=== PATIENT | female | born 1930 | race Caucasian/White ===

== ENCOUNTER 2017-04-02 08:15 | Emergency (ER) | payer MEDICARE, OTHER ==
--- NOTE | 2017-04-02 08:25 | ER Document Report ---
ED General Pain - General Chief Complaint: Hip Pain Stated Complaint: LEFT HIP PAIN Time Seen by Provider: 04/02/17 08:21 Mode of Arrival: Medic Information source: Patient Notes: Patient is an 86-year-old female with no history of osteoporosis or bone disease who presents to the ER today for left hip pain after she "twisted wrong " in the bed this morning. She states that it is in the left hip radiating down into her groin and down the left leg in the front of the leg. She denies any recent injury, numbness, tingling she has never broken his hip. - Related Data Allergies/Adverse Reactions: No Known Allergies Allergy (Unverified 04/02/17 08:32) Past Medical History - General Information source: Patient - Social History Smoking Status: Unknown if Ever Smoked Family History: Reviewed & Not Pertinent Review of Systems - Review of Systems Constitutional: No symptoms reported EENT: No symptoms reported Cardiovascular: No symptoms reported Respiratory: No symptoms reported Gastrointestinal: No symptoms reported Genitourinary: No symptoms reported Female Genitourinary: No symptoms reported Musculoskeletal: See HPI Skin: No symptoms reported Hematologic/Lymphatic: No symptoms reported Neurological/Psychological: No symptoms reported Physical Exam - Vital signs Vitals: Temp Pulse Resp BP Pulse Ox 97.9 F 87 16 145/59 H 97 04/02/17 08:27 04/02/17 08:27 04/02/17 08:27 04/02/17 08:27 04/02/17 08:27 - Notes Notes: PHYSICAL EXAMINATION: GENERAL: Elderly, in no acute distress. HEAD: Atraumatic, normocephalic. EYES: Pupils equal round and reactive to light, extraocular movements intact, sclera anicteric, conjunctiva are normal. ENT: ear canals without erythema or foreign body, TMs pearly means with good bony landmarks, nares patent, oropharynx clear without exudates. Moist mucous membranes. NECK: Normal range of motion, supple without lymphadenopathy LUNGS: CTAB and equal. No wheezes rales or rhonchi. HEART: Regular rate and rhythm without murmurs ABDOMEN: Soft, no tenderness. No guarding, no rebound BACK: no vertebral tenderness, normal ROM GI/: no CVA tenderness EXTREMITIES: limited range of motion of the left hip due to pain but nontender to left hip and left leg, no pitting edema. No cyanosis. good and equal pulses distally NEUROLOGICAL: Cranial nerves grossly intact. Normal sensory/motor exams. PSYCH: Normal mood, normal affect. SKIN: Warm, Dry, normal turgor, no rashes or lesions noted Course - Re-evaluation Re-evalutation: 04/02/17 09:51 x rays report osteoporosis but no acute fracture or abnormality. Questionable multiple myeloma as Bones are very brittle, even for patient's age. Patient to follow-up with primary care provider for bone scan. - Vital Signs Vital signs: Temp Pulse Resp BP Pulse Ox 97.9 F 87 16 145/59 H 97 04/02/17 08:27 04/02/17 08:27 04/02/17 08:27 04/02/17 08:27 04/02/17 08:27 Discharge - Discharge Clinical Impression: Osteoporosis, Left hip pain Condition: Stable Disposition: HOME, SELF-CARE Instructions: Osteoporosis ([facility]) Additional Instructions: You need a bone scan. Return immediately for any new or worsening symptoms. Follow up with primary care provider, call tomorrow to make followup appointment. Prescriptions: Naproxen [Naprosyn 375 Mg Tablet] 375 mg PO Q6 PRN #30 tablet PRN Reason: Referrals: PRANAY CHANDLER MD [Primary Care Provider] - Follow up as needed
[2017-04-02 08:38] VITALS: BP 145/59
--- NOTE | 2017-04-02 09:09 | RADIOLOGY REPORT (SQ) ---
EXAM DESCRIPTION: HIP LEFT AP/LATERAL COMPLETED DATE/TIME: 04/02/2017 8:48 am REASON FOR STUDY: pain COMPARISON: None. NUMBER OF VIEWS: Two views. TECHNIQUE: AP pelvis and additional frog-leg view of the left hip. LIMITATIONS: None. FINDINGS: MINERALIZATION: Diffusely osteopenic. There is a permeative pattern throughout the visual ized bony pelvis and right and left proximal femur. Question myeloma or other lytic process. LEFT HIP: No fracture or dislocation. Advanced left hip osteoarthritis with a [id number] appearanc e, and bony spurring along the acetabulum and left femoral head. RIGHT HIP: No fracture or dislocation. Old healed right proximal 3rd femoral diaphysis fracture. Mo derate to high-grade right hip joint space narrowing with mild bony spurring. . PUBIS AND ISCHIUM: No fracture. PELVIS: No fracture. SACRUM: No fracture or dislocation. No worrisome bone lesions. LOWER LUMBAR SPINE: Advanced disc space loss of height at L3-4 and L4-5. SOFT TISSUES: No findings. OTHER: No other significant finding. IMPRESSION: No acute fracture. Osteoarthritis both hips Old healed right proximal femoral diaphysis fracture Osteoporosis with permeative lytic pattern, question underlying myeloma Report called to Dr. Kline TECHNICAL DOCUMENTATION: JOB ID: [id number] [employer]- All Rights Reserved
--- NOTE | 2017-04-02 09:11 | RADIOLOGY REPORT (SQ) ---
EXAM DESCRIPTION: FEMUR LEFT COMPLETED DATE/TIME: 04/02/2017 8:48 am REASON FOR STUDY: pain COMPARISON: Left hip films same date NUMBER OF VIEWS: Two views. TECHNIQUE: Two radiographic images acquired of the left femur to include hip and knee in at least on e projection. LIMITATIONS: None. FINDINGS: MINERALIZATION: Osteoporotic. Question permeative lytic pattern in the proximal left femo ral diaphysis. BONES: No acute fracture. No worrisome bone lesions. SOFT TISSUES: No obvious swelling or foreign body. OTHER: Advanced joint space narrowing with egki-nb-hwsk appearance, subcortical cyst formation and emanuel ny spurring at the left hip joint. IMPRESSION: Osteoporotic. No acute fracture. Question permeative lytic pattern from myeloma TECHNICAL DOCUMENTATION: JOB ID: [id number] [employer]- All Rights Reserved
[2017-04-02] MEDS ORDERED: NAPROXEN 375 MG TABLET PO ONE (09:38)
== END 2017-04-02 10:00 | disposition home or self-care (01) ==
LOC: ER 08:15
DX: M25.552 Pain in left hip (principal); M81.0 Age-related osteoporosis without current pathological fracture
CPT/HCPCS: 99283

== ENCOUNTER → 2017-09-02 | Outpatient (CLI) | payer MEDICARE ==
--- NOTE | 2017-09-02 11:44 | RADIOLOGY REPORT (SQ) ---
EXAM DESCRIPTION: VENOUS BILATERAL LOWER COMPLETED DATE/TIME: 09/02/2017 11:32 am REASON FOR STUDY: LEG PAIN M79.604 PAIN IN RIGHT LEG M79.89 OTHER SPECIFIED SOFT TISSUE DISORDERS Z86.718 PERSONAL HISTORY OF OTHER VENOUS THROMBOSIS AND EMBO COMPARISON: None. TECHNIQUE: Dynamic and static acevedo scale and color images acquired of both lower extremity venous sy stems. Selected spectral images acquired with additional compression and augmentation maneuvers. Imag es stored on PACS. LIMITATIONS: Limited visualization in the left leg. FINDINGS: RIGHT LEG COMMON FEMORAL AND FEMORAL: Thrombosis mid to distal femoral vein. POPLITEAL: Normal compression and augmentation. No visualized echogenic material on acevedo scale. No de fects on color images. CALF VESSELS: Normal compression and augmentation. No visualized echogenic material on acevedo scale. No defects on color image. GSV AND SSV: Normal compression. No visualized echogenic material on acevedo scale. No defects on color images. ANY DEEP VENOUS INSUFFICIENCY: Not evaluated. ANY EVIDENCE OF POPLITEAL CYST: No. OTHER: No other significant finding. LEFT LEG COMMON FEMORAL AND FEMORAL: Distal femoral vein poorly visualized. Normal phasicity, compression and augmentation. No visualized echogenic material on acevedo scale. No defects on color images. POPLITEAL: Retrograde flow. No visualized echogenic material on acevedo scale. No defects on color image s. CALF VESSELS: Normal compression and augmentation. No visualized echogenic material on acevedo scale. No defects on color images. GSV AND SSV: Not visualized. ANY DEEP VENOUS INSUFFICIENCY: Not evaluated. ANY EVIDENCE POPLITEAL CYST: No. OTHER: No other significant finding. IMPRESSION: DEEP VENOUS THROMBOSIS INVOLVING THE MID TO DISTAL RIGHT FEMORAL VEIN. COMMENT: Preliminary report was called by the technologist to the referring clinician's office at th e time of patient visit. TECHNICAL DOCUMENTATION: JOB ID: [id number] [email or web address]- All Rights Reserved
--- NOTE | 2017-09-04 13:09 | XCELERA REPORT ---
[address] [address] Lower Extremity Arterial Evaluation Name: DAVID FOWLER Age: 87 yrs Gender: Female : 1930 Patient Status: Outpatient Patient Location: Study Date: 09/02/2017 10:20 AM Procedure: A color flow and duplex scan of the lower extremity arteries was performed bilaterally with velocity and waveform anaylsis. Ankle brachial indicies performed. 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 Then biphasic to the infregeniculate vessels. 0 % stenosis . Ankle Brachial index is 1.2. Left Side Arterial Evaluation Normal velocity and triphasic waveforms noted from the Common Femoral artery to the Anterior Tibial artery. Monophasic in the Posterior Tibial artery. 50-99 % stenosis at the Posterior Tibial artery. Ankle Brachial index is 1.2. Interpretation Summary Mild hemodynamically significant lesions in the right lower extremity only, on duplex imaging, at rest. Mild hemodynamically significant lesions in the left lower extremity only, on duplex imaging, at rest. : LIU KHAN > Liu Khan
== END ==
LOC: SP 09:23
PROVIDERS: ATTEND Surgery
DX: M79.604 Pain in right leg (principal); M79.89 Other specified soft tissue disorders; Z86.718 Personal history of other venous thrombosis and embolism
CPT/HCPCS: 93925; 93970

== ENCOUNTER 2018-03-18 02:47 | Inpatient (IN) | payer MEDICARE ==
[2018-03-18] MEDS ORDERED: MORPHINE SULFATE 10 MG/ML INJ IV ONE ×4 (03:05→06:11)
--- NOTE | 2018-03-18 03:07 | ER Document Report ---
ED Fall - General Chief Complaint: Hip Injury Stated Complaint: FALL Time Seen by Provider: 03/18/18 02:59 Notes: Patient is an 87-year-old female who comes emergency department for chief complaint of fall, she states she accidentally fell out of her bed, she landed on her left hip area, she hit her head, she had a small amount of bleeding from her left ear, she denies loss of consciousness, vomiting, chest pain, abdominal pain, incontinence, numbness. She is not on a blood thinner. She lives at home with her daughter. Past medical history of CHF, DVT, hypertension. She is up-to-date on her tetanus within 5 years. TRAVEL OUTSIDE OF THE [place] IN LAST 30 DAYS: No - Related data Allergies/Adverse Reactions: No Known Allergies Allergy (Unverified 04/02/17 08:32) Past Medical History - General Information source: Patient, Relative - Social History Smoking Status: Never Smoker Frequency of alcohol use: None Drug Abuse: None Family History: Reviewed & Not Pertinent - Past Medical History Cardiac Medical History: Reports: Hx Congestive Heart Failure, Hx DVT, Hx Hypertension - Immunizations Hx Diphtheria, Pertussis, Tetanus Vaccination: Yes Review of Systems - Review of Systems Constitutional: No symptoms reported EENT: No symptoms reported Cardiovascular: No symptoms reported Respiratory: No symptoms reported Gastrointestinal: No symptoms reported Genitourinary: No symptoms reported Female Genitourinary: No symptoms reported Musculoskeletal: See HPI Skin: No symptoms reported Hematologic/Lymphatic: No symptoms reported Neurological/Psychological: See HPI Physical Exam - Vital signs Vitals: Temp Pulse Resp BP Pulse Ox 97.9 F 75 20 147/60 H 97 03/18/18 02:54 03/18/18 02:54 03/18/18 02:54 03/18/18 02:54 03/18/18 02:54 - Notes Notes: GENERAL: Alert, interacts well. Patient in obvious pain, shifting, unwilling to place weight on left leg HEAD: Normocephalic, atraumatic. EYES: Pupils equal, round, and reactive to light. Extraocular movements intact. ENT: Oral mucosa moist, tongue midline. [Nares patent, no nasal septal hematoma , TM's intact.] NECK: Full range of motion. Supple. Trachea midline. LUNGS: Clear to auscultation bilaterally, no wheezes, rales, or rhonchi. No respiratory distress. HEART: Regular rate and rhythm. No murmur ABDOMEN: Soft, non-tender. Non-distended. Bowel sounds present in all 4 quadrants. EXTREMITIES: Some difficulty moving right extremity, reportedly chronic. Left extremity with some shortening, marked pain in the general hip and femur area. Normal distal pulse and sensation. Normal exam otherwise. BACK: no cervical, thoracic, lumbar midline tenderness. No saddle anesthesia, normal distal neurovascular exam. NEUROLOGICAL: Alert and oriented x3. Normal speech. [cranial nerves II through XII grossly intact]. SKIN: Warm, dry, normal turgor. No rashes or lesions noted. Small abrasion noted over the top of the left ear at the helix. Course - Re-evaluation Re-evalutation: Patient unable to walk, in obvious pain, I help to the staff transfer her to the bed. She was medicated. Became more comfortable for a little while, then had pain again, had to be remedicated. Left comminuted proximal fracture of the femur on x-ray, chest x-ray performed, CT of the head and neck performed with no acute abnormality except for questionable area in the mediastinum which could be a mass, recommends follow- up with chest CT or ultrasound. CBC shows mild leukocytosis, normal platelets. Chemistry shows elevated BUN, elevated blood glucose, no acidosis. Attempted to Place [place] although patient became extremely agitated with this, this was very difficult and after a short time patient refused. She has a chronic right leg deformity which makes this more difficult. She does ambulate at home with a walker. She lives at home with her daughter. 03/18/18 05:[address] Godwin, he will consult on the patient for the left hip/femur fracture. 03/18/18 05:[address] Herr, internal medicine, patient will be admitted to telemetry full admission. Patient and daughter state understanding and agreement. - Vital Signs Vital signs: Temp Pulse Resp BP Pulse Ox 97.9 F 75 17 143/55 H 100 03/18/18 02:54 03/18/18 02:54 03/18/18 04:02 03/18/18 04:02 03/18/18 04:02 - Laboratory Result Diagrams: 03/18/18 04:44 03/18/18 04:44 Laboratory results interpreted by me: 03/18/18 03/18/1803/18/18 04:44 04:44 04:44 WBC 12.7 H RBC 3.67 L Hgb 10.3 L Hct 30.6 L Seg Neutrophils % 88.8 H Lymphocytes % 6.0 L Absolute Neutrophils 11.3 H Chloride 97 L BUN 48 H Est GFR ( Amer) 54 L Est GFR (Non-Af Amer) 44 L Glucose 214 H Hemoglobin A1c % 6.9 H Direct Bilirubin 0.5 H Discharge - Discharge Clinical Impression: Fall Qualifiers: Encounter type: initial encounter Qualified Code(s): W19.XXXA - Unspecified fall, initial encounter Fracture of proximal end of left femur Qualifiers: Encounter type: initial encounter Fracture type: closed Qualified Code(s): S72.002A - Fracture of unspecified part of neck of left femur, initial encounter for closed fracture Condition: Stable Disposition: ADMITTED INPATIENT Admitting Provider: Hospitalist Unit Admitted: Telemetry
[2018-03-18] MEDS ORDERED: ONDANSETRON 4 MG TAB.RAPDIS PO ONE (03:54)
--- NOTE | 2018-03-18 04:06 | RADIOLOGY REPORT (SQ) ---
EXAM DESCRIPTION: CT HEAD WITHOUT IV CONTRAST COMPLETED DATE/TME: 03/18/2018 03:05 CLINICAL HISTORY: 87 years Female, fall, head injury COMPARISON: None. TECHNIQUE: No contrast. Coronal and sagittal reformat. This exam was performed according to our departmental dose-optimization program, which includes automated exposure control, adjustment of the mA and/or kV according to patient size and/or use of iterative reconstruction technique. FINDINGS: No hemorrhage or infarct. No mass, mass effect, or midline shift. Mild cerebral volume loss, mild white matter microangiopathy pattern, 2 cm right maxillary retention cyst-mucocele. Brain and extra-axial structures appear otherwise intact. IMPRESSION: No acute findings.
--- NOTE | 2018-03-18 04:15 | RADIOLOGY REPORT (SQ) ---
EXAM DESCRIPTION: CT CERVICAL SPINE WITHOUT IV CONTRAST COMPLETED DATE/TME: 03/18/2018 03:05 CLINICAL HISTORY: 87 years Female, fall, head injury Comparison: None. Technique: No contrast. Coronal and sagital reformat. This exam was performed according to our departmental dose-optimization program, which includes automated exposure control, adjustment of the mA and/or kV according to patient size and/or use of iterative reconstruction technique. [facility]: Dose Right [facility]: CareDose [facility]: Dose Right [facility]: Teradose 4D [facility]: Ter[employer] Tech LIMITATIONS: None. Findings: Fracture: None. Vertebral alignment: Normal, including the craniocervical junction and cervicothoracic junction. Mild reticulonodular interstitial markings at the upper lung tran. Moderate straightening of the cervical spine. Moderate disc desiccation at the C5-C7 levels. Deformity of the dens consistent with prior injury. Moderate spondylosis. Partial fusion of posterior elements involve the C2-C5 levels. Moderate C5-C6 disc bulge-osteophyte complex causes mild-moderate spinal canal stenosis. Soft tissues: 3.6 cm macrolobulated mass with calcification of the upper mediastinum possibly associated with the thyroid. Impression: 1. Indeterminate 3.6 cm mass with calcification of the upper mediastinum possibly associated with the thyroid. Recommend thyroid ultrasound contrast CT of the chest. 2. Mild interstitial markings. Differential diagnosis includes pulmonary edema, atypical pneumonitis, and chronic interstitial lung disease. 3. No acute defect of the cervical spine.
--- NOTE | 2018-03-18 04:16 | RADIOLOGY REPORT (SQ) ---
EXAM DESCRIPTION: XR CHEST 1 VIEW COMPLETED DATE/TME: 03/18/2018 00:00 CLINICAL HISTORY: 87 years Female, FALL COMPARISON: None. NUMBER OF VIEWS/TECHNIQUE: 1/AP FINDINGS: Adequate lung volume, mild interstitial markings, normal cardiac silhouette, right upper abdominal clips and intact bony thorax. IMPRESSION: Mild interstitial markings. Differential diagnosis includes pulmonary edema, atypical pneumonitis, and chronic interstitial lung disease. Please also see abnormal concurrent CT of the cervical spine.
--- NOTE | 2018-03-18 04:19 | RADIOLOGY REPORT (SQ) ---
EXAM DESCRIPTION: XR HIP 2 OR MORE VIEWS COMPLETED DATE/TME: 03/18/2018 03:05 CLINICAL HISTORY: 87 years, Female, fall, pain COMPARISON: None. NUMBER OF VIEWS: 3 LIMITATIONS: None. FINDINGS: Comminuted intratrochanteric fracture of the left femur with impaction and 1.2 cm medial displacement of the lesser trochanter. Moderate osteoarthritis of bilateral hips. Moderate lower lobar disc desiccation. Moderate deformity of the proximal right femoral shaft consistent with prior injury. Diffuse demineralization. IMPRESSION: Fracture of the proximal left femur.
[2018-03-18 04:56] LABS: ABSOLUTE EOSINOPHILS # (AUTO) 0.1 10^3/uL (0.0-0.6); ABSOLUTE LYMPHOCYTES (AUTO) 0.8 10^3/uL (0.5-4.7); ABSOLUTE MONOCYTES (AUTO) 0.5 10^3/uL (0.1-1.4); ABSOLUTE NEUT (AUTO) 11.3 10^3/uL (1.7-8.2); BASOPHILS % (AUTO) 0.2 % (0-2); EOSINOPHILS % (AUTO) 0.7 % (0-6); HEMATOCRIT 30.6 % (36.0-47.0); HEMOGLOBIN 10.3 g/dL (12.0-15.5); MEAN CORPUSCULAR HGB CONC 33.7 g/dL (32.0-36.0); MEAN CORPUSCULAR VOLUME 83 fl (80-97); MONOCYTES % (AUTO) 4.3 % (3-13); PLATELET COUNT 338 10^3/uL (150-450); RED BLOOD COUNT 3.67 10^6/uL (3.72-5.28); RED CELL DISTRIBUTION WIDTH 13.9 % (11.5-14.0); SEGMENTED NEUTROPHILS % (AUTO) 88.8 % (42-78); TOTAL CELLS COUNTED % (AUTO) 100 %; WHITE BLOOD COUNT 12.7 10^3/uL (4.0-10.5)
[2018-03-18 05:07] LABS: INTERNATIONAL RATION (INR) 1.11; PARTIAL THROMBOPLASTIN TIME 29.6 SEC (23.5-35.8); PROTHROMBIN TIME 14.9 SEC (11.4-15.4)
[2018-03-18 05:12] LABS: ALANINE AMINOTRANSFERASE 27 U/L (9-52); ALBUMIN 3.6 g/dL (3.5-5.0); ALKALINE PHOSPHATASE 113 U/L (38-126); ANION GAP 14 (5-19); ASPARTATE AMINO TRANSFERASE 29 U/L (14-36); BILIRUBIN,DIRECT 0.5 mg/dL (0.0-0.4); BLOOD UREA NITROGEN 48 mg/dL (7-20); CALCIUM 9.4 mg/dL (8.4-10.2); CARBON DIOXIDE 26 mmol/L (22-30); CHLORIDE 97 mmol/L (98-107); GLUCOSE 214 mg/dL (75-110); POTASSIUM 4.1 mmol/L (3.6-5.0); SODIUM 137.4 mmol/L (137-145); TOTAL PROTEIN 6.8 g/dL (6.3-8.2)
[2018-03-18] MEDS ORDERED: DEXTROSE 40% GEL 15 GM TUBE PO PRN ×2 (05:25)
[2018-03-18] MEDS ORDERED: ACETAMINOPHEN 325 MG TABLET PO PRN ×2 (05:25→06:23)
[2018-03-18] MEDS ORDERED: DEXTROSE 50%-WATER 25 GM/50 ML DISP.SYRIN IV PRN ×2 (05:25)
[2018-03-18] MEDS ORDERED: GLUCAGON,HUMAN RECOMB 1 MG INJ IM PRN (05:25)
[2018-03-18] MEDS ORDERED: IPRATROPIUM/ALBUTEROL 0.5-2.5 MG/3 ML AMPUL NEB PRN (05:25)
[2018-03-18] MEDS ORDERED: MAGNESIUM HYDROXIDE SUSP 30 ML UDCUP PO PRN (05:25)
[2018-03-18] MEDS ORDERED: FENTANYL CITRATE INJ/PF 100 MCG/2 ML AMPUL IV ONE ×2 (05:29)
[2018-03-18] MEDS ORDERED: NORMAL SALINE 1000 ML 1,000 ML IV PRN (05:30)
[2018-03-18 05:52] LABS: CREATINE KINASE MB 0.97 ng/mL (<4.55)
[2018-03-18 05:56] LABS: TROPONIN I < 0.012 ng/mL
[2018-03-18] MEDS ORDERED: MORPHINE SULFATE 10 MG/ML INJ ONE (06:09)
[2018-03-18] MEDS ORDERED: KETOROLAC TROMETHAMINE INJ/PF 30 MG/1 ML SDV IV ONE (06:22)
--- NOTE | 2018-03-18 06:33 | PDOC CONSULTATION ---
Consultation Consult Date: 03/18/18 Consult reason:: Left hip pain History of Present Illness Admission Date/PCP: 03/18/18 05:40 PRANAY CHANDLER MD History of Present Illness: DAVID FOWLER is a 87 year old female Patient is an 87-year-old white female, household ambulator, who fell out of bed and sustained a left hip injury. She was unable to weight-bear. She is brought to the emergency room her left intratrochanteric femur fracture was identified. Orthopedics is consulted for fracture management. Past Medical History Cardiac Medical History: Reports: Congestive Heart Failure, DVT, Hypertension Social History Information Source: Patient, Relative, Dr. Office Smoking Status: Never Smoker Family History Family History: Reviewed & Not Pertinent Parental Family History Reviewed: No Children Family History Reviewed: No Sibling(s) Family History Reviewed.: No Medication/Allergy Home Medications: Naproxen [Naprosyn 375 Mg Tablet] 375 mg PO Q6 PRN #30 tablet 04/02/17 Allergies/Adverse Reactions: No Known Allergies Allergy (Unverified 04/02/17 08:32) Review of Systems ROS unobtainable: Due to mental status All systems: as per H Physical Exam Vital Signs: Temp Pulse Resp BP Pulse Ox 36.6 C 75 18 147/86 H 99 03/18/18 02:54 03/18/18 02:54 03/18/18 06:01 03/18/18 06:01 03/18/18 06:01 Physical Exam: Patient is an elderly white female lying on [facility]. There is some shortness of breath and a fair amount of anxiety. She is accompanied by family member. Most of the history comes from family member. General appearance: PRESENT: mild distress Head exam: PRESENT: normocephalic Cardiovascular exam: PRESENT: RRR Vascular exam: PRESENT: normal capillary refill GI/Abdominal exam: PRESENT: soft Rectal exam: PRESENT: deferred Extremities exam: PRESENT: other - Left lower extremity externally rotated Musculoskeletal exam: PRESENT: other - X-rays indicate the presence of a right femoral malunion from falling off a horse at age 14. There is also considerable bilateral hip osteoarthritis and osteopenia Neurological exam: PRESENT: alert, awake, oriented to person, oriented to place , oriented to time, oriented to situation Psychiatric exam: PRESENT: agitated, anxious Skin exam: PRESENT: dry, intact, warm. ABSENT: cyanosis, rash Results Impressions: Chest X-Ray 03/18/18 00:00 IMPRESSION: Mild interstitial markings. Differential diagnosis includes pulmonary edema, atypical pneumonitis, and chronic interstitial lung disease. Please also see abnormal concurrent CT of the cervical spine. Head CT 03/18/18 03:05 IMPRESSION: No acute findings. Hip X-Ray 03/18/18 03:05 IMPRESSION: Fracture of the proximal left femur. Status: Imported from PACS Assessment & Plan - Time Time Spent: 50 to 70 Minutes Anticipated discharge: SNF Within: Other - Plan Summary Plan Summary: 87-year-old white female with a left intratrochanteric femur fracture that would be best served with an open reduction internal fixation under a regional anesthetic pending medical clearance and or availability.
--- NOTE | 2018-03-18 06:44 | PDOC H&P ---
History of Present Illness Admission Date/PCP: 03/18/18 05:40 PRANAY CHANDLER MD Patient complains of: Left hip pain History of Present Illness: DAVID FOWLER is a 87 year old female who is accompanied by her daughter with whom she lives and has an unclear history but thought to have congestive heart failure, hypertension, hyperthyroidism, diabetes osteoarthritis, gait instability and bilateral DVT. No anticoagulation as patient allergic to several anticoagulant agents resulting in bleeding and severe rash. Patient presents after attempting to stand up from bed resulting in a fall to the left side sustaining injury to the left hip left side of the head. She admitted intractable pain to the left hip, denied palpitations, nausea vomiting, chest pain or shortness of breath. In the emergency room she is found to have a small amount of blood from her left ear without serous drainage but no evidence of skull fracture. X-ray reveals left-sided comminuted occipital femoral fracture. She receives several doses of morphine for pain and referred to the hospitalist for admission. Daughter at bedside is able to verify CODE STATUS as DNR. She also recalls challenges to recovery from anesthesia from prior surgery. 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 Lives with: Family Smoking Status: Never Smoker Frequency of Alcohol Use: None Drugs: None - Advance Directive Resuscitation Status: Do Not Resuscitate Family History Family History: Hypertension Parental Family History Reviewed: Yes Children Family History Reviewed: Yes Sibling(s) Family History Reviewed.: Yes Medication/Allergy Home Medications: Naproxen [Naprosyn 375 Mg Tablet] 375 mg PO Q6 PRN #30 tablet 04/02/17 Allergies/Adverse Reactions: No Known Allergies Allergy (Unverified 04/02/17 08:32) Review of Systems ROS unobtainable: Due to mental status - Sedated secondary to intractable pain Physical Exam Vital Signs: Temp Pulse Resp BP Pulse Ox 97.9 F 75 18 147/86 H 99 03/18/18 02:54 03/18/18 02:54 03/18/18 06:01 03/18/18 06:01 03/18/18 06:01 General appearance: PRESENT: cooperative, disheveled, severe distress, thin. ABSENT: no acute distress, mild distress Head exam: PRESENT: atraumatic, normocephalic Eye exam: PRESENT: conjunctiva pink, EOMI, PERRLA. ABSENT: scleral icterus Ear exam: PRESENT: bleeding - Left ear blood without serious drainage, normal external ear exam Mouth exam: PRESENT: moist, tongue midline Neck exam: ABSENT: carotid bruit, JVD, lymphadenopathy, thyromegaly Respiratory exam: PRESENT: clear to auscultation gila. ABSENT: rales, rhonchi, wheezes Cardiovascular exam: PRESENT: gallop, RRR, tachycardia. ABSENT: diastolic murmur, rubs, systolic murmur Pulses: PRESENT: normal dorsalis pedis pul Vascular exam: PRESENT: normal capillary refill GI/Abdominal exam: PRESENT: normal bowel sounds, soft. ABSENT: distended, guarding, mass, organolmegaly, rebound, tenderness Rectal exam: PRESENT: deferred Extremities exam: ABSENT: calf tenderness, clubbing, full ROM - Limited range of motion secondary to pain, pedal edema Neurological exam: PRESENT: alert, altered, awake, oriented to person, CN II- XII grossly intact. ABSENT: motor sensory deficit Psychiatric exam: PRESENT: anxious Focused psych exam: ABSENT: catatonic, delusional, euphoric, flight of ideas Skin exam: PRESENT: dry, intact, warm. ABSENT: cyanosis, rash Results Impressions: Chest X-Ray 03/18/18 00:00 IMPRESSION: Mild interstitial markings. Differential diagnosis includes pulmonary edema, atypical pneumonitis, and chronic interstitial lung disease. Please also see abnormal concurrent CT of the cervical spine. Head CT 03/18/18 03:05 IMPRESSION: No acute findings. Hip X-Ray 03/18/18 03:05 IMPRESSION: Fracture of the proximal left femur. Assessment & Plan - Diagnosis (1) Fracture of proximal end of left femur Qualifiers: Encounter type: initial encounter Fracture type: closed Qualified Code(s) : S72.002A - Fracture of unspecified part of neck of left femur, initial encounter for closed fracture Is this a current diagnosis for this admission?: Yes Plan: Patient is at high risk for cardiopulmonary complications of surgery given history of congestive heart failure and likely new left bundle branch block, respiratory depression with analgesia. Suggest avoidance of general anesthesia given this and history of anesthesia recovery.. No immediately reversible risk factors present preventing surgery. Orthopedic surgery consulted (2) Left bundle branch block Is this a current diagnosis for this admission?: Yes Plan: Serial cardiac enzymes cardiology consult. (3) Coagulopathy Is this a current diagnosis for this admission?: Yes Plan: Unclear allergic reaction or agents. Suggest proceed with prophylactic dose of Arixtra (4) Respiratory depression Is this a current diagnosis for this admission?: Yes Plan: BiPAP and incentive spirometry. (5) Fall Qualifiers: Encounter type: initial encounter Qualified Code(s): W19.XXXA - Unspecified fall, initial encounter Is this a current diagnosis for this admission?: Yes Plan: Appears a mechanical fall. - Time Time Spent: 50 to 70 Minutes - Inpatient Certification Medical Necessity: Need Close Monitoring Due to Risk of Patient Decompensation
[2018-03-18] MEDS ORDERED: RINGERS SOLUTION,LACTATED 1,000 ML IV PRN (06:52)
[2018-03-18] MEDS: HEPARIN SOD (PORCINE) 5,000 UNIT/ML 1 ML SYRINGE SUBCUT SCH ×4 (07:18→21:38)
[2018-03-18] MEDS: IPRATROPIUM/ALBUTEROL 0.5-2.5 MG/3 ML AMPUL NEB SCH ×2 (07:58→15:50)
--- NOTE | 2018-03-18 08:26 | EKG REPORT ---
SEVERITY:- ABNORMAL ECG - SINUS RHYTHM LEFT BUNDLE BRANCH BLOCK : Confirmed by: Alysia Osorio 18-Mar-2018 08:24:42
[2018-03-18] MEDS ORDERED: PROMETHAZINE HCL INJ 25 MG/1 ML VIAL IV PRN (09:13)
[2018-03-18] MEDS ORDERED: FUROSEMIDE INJ/PF 20 MG/2 ML SDV IV ONE (09:14)
[2018-03-18] MEDS: DOCUSATE SODIUM 100 MG CAPSULE PO SCH ×2 (10:26→17:16)
[2018-03-18] MEDS: RINGERS SOLUTION,LACTATED 1,000 ML IV PRN ×2 (10:27→23:42)
[2018-03-18] MEDS: KETOROLAC TROMETHAMINE INJ/PF 30 MG/1 ML SDV IV PRN (11:50)
[2018-03-18 11:58] LABS: TROPONIN I < 0.012 ng/mL
[2018-03-18] MEDS: MORPHINE SULFATE 10 MG/ML INJ IV PRN ×2 (11:59→22:01)
[2018-03-18] MEDS: INSULIN LISPRO 100 UNIT/ML 3 ML VIAL SUBCUT PRN ×2 (12:49→18:01)
[2018-03-18 13:18] LABS: APPEARANCE,URINE CLEAR; BILIRUBIN,URINE NEGATIVE (NEGATIVE); COLOR,URINE STRAW; GLUCOSE, URINE 150 mg/dL (NEGATIVE); KETONES,URINE NEGATIVE (NEGATIVE); LEUKOCYTE ESTERASE,URINE SMALL (NEGATIVE); NITRITE,URINE NEGATIVE (NEGATIVE); PROTEIN,URINE NEGATIVE (NEGATIVE); URINE SPECIFIC GRAVITY 1.009; UROBILINOGEN,URINE NEGATIVE mg/dL (<2.0)
--- NOTE | 2018-03-18 14:00 | XCELERA REPORT ---
[address] [address] Transthoracic Echocardiogram Report Name: DAVID FOWLER Age: 87 yrs Gender: Female : 1930 Patient Status: Inpatient Patient Location: [address] [place] [address] Study Date: 03/18/2018 09:24 AM Height: 60 in Weight: 143 lb BSA: 1.6 m2 Procedure: A two-dimensional transthoracic echocardiogram with color flow and Doppler was performed. The study was technically difficult with many images being suboptimal in quality. Reason For Study: Heart murmur and Pre-op History: Heart murmur and Pre-op. Ordering Physician: RICA LAMBERT Performed By: Gricelda Hernandez Interpretation Summary The left ventricle is normal in size. There is normal left ventricular wall thickness. LV EF is > than 65%% Left ventricular systolic function is normal. Doppler measurements suggest impaired left ventricular relaxation, which is associated with grade I/IV or mild diastolic dysfunction The left ventricular wall motion is normal. There is no thrombus. The right ventricle is grossly normal size. The right atrium is normal. The left atrial size is normal. There is no evidence of mitral valve prolapse. There is no vegetation seen on the mitral valve. There is a trace amount of mitral regurgitation There is no aortic valvular vegetation. There is no aortic valve stenosis There is no LVOT obstruction. No aortic regurgitation is present. There is no tricuspid stenosis. There is a trace amount of tricuspid regurgitation There is mild pulmonary hypertension by echo RVSP is 33 to 38 mm of Hg , with RA mean of 5 to 10. There is no pericardial effusion. MMode/2D Measurements & Calculations RVDd: 2.9 cm LVIDd: 4.1 cm FS: 33.8 % Ao root diam: 3.1 cm IVSd: 0.97 cm LVIDs: 2.7 cm EDV(Teich): 74.7 ml LVPWd: 0.96 cm ESV(Teich): 27.5 ml Ao root area: 7.5 cm2 EF(Teich): 63.2 % LA dimension: 3.0 cm Doppler Measurements & Calculations MV E max jamei: MV P1/2t max jamie: Ao V2 max: LV V1 max P.3 cm/sec 92.8 cm/sec 146.6 cm/sec 6.6 mmHg MV A max jamie: MV P1/2t: 107.4 msec Ao max PG: LV V1 max: 131.8 cm/sec 8.6 mmHg 128.8 cm/sec MV E/A: 0.71 MVA(P1/2t): 2.0 cm2 MV dec slope: 253.1 cm/sec2 MV dec time: 0.38 sec PA V2 max: TR max jamie: 98.7 cm/sec 264.7 cm/sec PA max P.9 mmHgTR max P.0 mmHg Left Ventricle The left ventricle is normal in size. There is normal left ventricular wall thickness. LV EF is > than 65%%. Left ventricular systolic function is normal. Doppler measurements suggest impaired left ventricular relaxation, which is associated with grade I/IV or mild diastolic dysfunction. The left ventricular wall motion is normal. There is no thrombus. Right Ventricle The right ventricle is grossly normal size. Atria The right atrium is normal. The left atrial size is normal. Mitral Valve There is mild to moderate mitral leaflet calcification. There is no evidence of mitral valve prolapse. There is no vegetation seen on the mitral valve. There is no mitral valve stenosis. There is a trace amount of mitral regurgitation. Aortic Valve There is no aortic valvular vegetation. There is no aortic valve stenosis. There is no LVOT obstruction. No aortic regurgitation is present. Tricuspid Valve There is no tricuspid stenosis. There is a trace amount of tricuspid regurgitation. There is mild pulmonary hypertension by echo. RVSP is 33 to 38 mm of Hg , with RA mean of 5 to 10. Pulmonic Valve There is no pulmonic valvular stenosis. There is no pulmonic valvular regurgitation. Great Vessels The aortic root is normal size. Effusions There is no pericardial effusion. : RICA LAMBERT > Kassy Maloney
[2018-03-18 18:36] LABS: CREATINE KINASE MB 2.08 ng/mL (<4.55)
[2018-03-18 18:40] LABS: TROPONIN I < 0.012 ng/mL
--- NOTE | 2018-03-18 19:43 | PDOC PROGRESS REPORT ---
Subjective Progress Note for:: 03/18/18 Subjective:: Cardiology consultation for cardiac risk assessment for hip surgery. This is a preliminary note. The patient has been interviewed and examined and also history obtained from the daughter and this has been dictated. The patient would be an acceptable cardiac risk for the proposed hip surgery. Would recommend continue observation of the patient's heart rhythm on the telemetry, and we will get serial EKGs and enzymes, and watch for development of congestive heart failure. Please see formal consult that has been dictated. We will follow with you. Thanking Reason For Visit: HIP FRACTURE, CHF, PRERENAL AZO Physical Exam Vital Signs: Temp Pulse Resp BP Pulse Ox 98.2 F 76 17 100/47 L 100 03/18/18 19:32 03/18/18 19:32 03/18/18 19:32 03/18/18 19:32 03/18/18 19:32 Intake & Output 03/17/18 03/18/18 03/19/18 06:59 06:59 06:59 Intake Total 789 Output Total 1280 Balance -491 Weight 65 kg Results Laboratory Results: 03/18/18 12:30 Urine Color STRAW Urine Appearance CLEAR Urine pH 6.0 Ur Specific Raymond 1.009 Urine Protein NEGATIVE Urine Glucose (UA) 150 H Urine Ketones NEGATIVE Urine Blood MODERATE H Urine Nitrite NEGATIVE Ur Leukocyte Esterase SMALL H Urine WBC (Auto) 2 Urine RBC (Auto) 1 03/18/18 03/18/18 03/18/18 11:11 11:11 17:20 Creatine Kinase 98 96 CK-MB (CK-2) 1.90 Troponin I < 0.012 03/18/18 17:20 Creatine Kinase CK-MB (CK-2) 2.08 Troponin I < 0.012 Impressions: Chest X-Ray 03/18/18 00:00 IMPRESSION: Mild interstitial markings. Differential diagnosis includes pulmonary edema, atypical pneumonitis, and chronic interstitial lung disease. Please also see abnormal concurrent CT of the cervical spine. Head CT 03/18/18 03:05 IMPRESSION: No acute findings. Hip X-Ray 03/18/18 03:05 IMPRESSION: Fracture of the proximal left femur.
--- NOTE | 2018-03-18 22:35 | CONSULTATION REPORT E ---
Consultation Report NAME: DAVID FOWLER : 1930 AGE: 87Y DATE: 03/18/2018 ROOM: 329 A TO: JERSON BURNETT M.D. FROM: RICA LAMBERT M.D. Requesting Physician REASON FOR CONSULTATION: The patient with murmur, history of congestive heart failure and hypertension for assessment of cardiac risk for proposed hip surgery. HISTORY OF PRESENT ILLNESS: Note that the patient is not a very good historian and history obtained from the patient and also from the patient's daughter by telephone. The patient is an 87-year-old female with a known history of hypertension, history of DVT bilateral in both legs, and history of hyperthyroidism not on any medication, and history of congestive heart failure in the past states that when she got up out of bed she fell and had pain in her left hip and was found to have a left intertrochanteric fracture and is for surgical repair of the same tomorrow. The patient denies any chest pain or discomfort. There is no syncope. There are no palpitations. There is no PND, orthopnea. The patient denies any history of TIA or CVA. There is no recent suggestion of PND, orthopnea, or symptoms of congestive heart failure. There are no anginal symptoms. PAST MEDICAL HISTORY: Positive for a history of hypertension. She also has a history of congestive heart failure, as per the daughter the patient did not take her blood pressure medications and her blood pressure was high 3 years ago when she went into congestive heart failure. There are no episodes of congestive heart failure after that. There is no history of asthma or COPD. She has a history of bilateral DVTs and initially was placed on Coumadin and subsequently Xarelto and the patient's skin started peeling as per the daughter with redness and raw areas of the skin and, hence, the patient refused to take anticoagulation. There is no history of TIA or CVA. There is a history of diabetes mellitus noninsulin dependent. There is no history of chronic kidney disease. There is no history of TIA or CVA or headaches or seizures. There is no history of asthma or COPD. SOCIAL HISTORY: The patient does not smoke. There is no history of EtOH abuse. ADVANCE DIRECTIVES: The patient is a DNR. Her daughter is the surrogate healthcare decision maker. FAMILY HISTORY: Positive for hypertension. SURGICAL HISTORY: Negative for any prior history of surgeries. ALLERGIES: There are no known allergies, but the daughter thing that she is allergic to COUMADIN, XARELTO, AND OTHER ANTICOAGULATION AGENTS. MEDICATIONS: 1. Tylenol 650 mg p.o. q.4 hours p.r.n. 2. Cefazolin 2 grams in 50 mL intravenously preop. 3. Glutose 40% gel 15 grams p.o. and 30 grams p.o. p.r.n. hypoglycemia. 4. Dextrose 50%, 12.5 grams and 25 grams IV p.r.n. hypoglycemia. 5. Colace 100 mg p.o. b.i.d. 6. Lasix 10 mg IV x1. 7. Glucagon 1 mg IM p.r.n. 8. Heparin 5000 units subcutaneously. 9. Accu-Chek a.c., t.i.d., and bedtime with sliding scale insulin coverage. 10. Ipratropium/albuterol sulfate DuoNeb 3 mL nebulizer treatment q.12 hours p.r.n. and 3 mL nebulizer treatment q.8 hours. 11. Toradol 15 mg IV q.6 hours p.r.n. 12. Magnesium hydroxide 30 mL p.o. q.6 hours p.r.n. 13. She did receive morphine sulfate for pain control intravenously. 14. Lactate ringer solution at 100 mL per hour. 15. Zofran 4 mg p.o. x1 and Phenergan 6.25 mg IV q.8 hours p.r.n. REVIEW OF SYSTEMS: CONSTITUTIONAL: Denies any fever, chills. or rigors. Complains of generalized fatigue and weakness. HEAD: No history of headaches or head injury. EYES: No history of amblyopia or diplopia. No history of amaurosis fugax. EARS: No history of hearing loss. No history of tinnitus. No history of recurrent ear infections. NOSE: No history of nasal polyps. No hay fever. No history of nosebleeds. MOUTH: No altered taste sensation. No ulcers in the mouth. No bleeding from the gums. THROAT: No redness of the oropharynx. There are no exudates. SKIN: There is no pruritus. There is no ecchymosis. There is no yellowish discoloration of the skin. There is no psoriasis. NECK: Denies any neck pain or any swelling in the neck. There is no lymphadenopathy or goiter. LUNGS: No history of asthma or COPD. No history of cough or sputum production. No history of sleep apnea. No history of pulmonary embolism in spite of the patient's DVT in the past. No recent cough, wheezing, or sputum production or symptoms suggestive of upper respiratory tract infection or pneumonia. CARDIAC: History of hypertension. Past history of congestive heart failure. At the present the patient's admission EKG has been read as congestive heart failure but clinically the patient does not have heart failure. She has no PND, orthopnea, palpitations, or syncope. There is no history of NH or anginal symptoms. No history of coronary artery disease. No history of rheumatic fever. No history of cardiac arrhythmia. No recurrence of congestive heart failure after episode 3 years ago when her blood pressure was high due to noncompliance with medications by the patient. GASTROINTESTINAL: No history of GERD or peptic ulcer disease. No history of GI bleed. No history of hepatitis. No history of fatty food intolerance. No history of altered bowel movements. No history of jaundice. ENDOCRINE: History of diabetes mellitus type 2 noninsulin dependent. As per records the patient has hyperthyroidism, she is not on any antithyroid medication. There is no polydipsia or polyuria. No history of heat or cold intolerance. No history of excessive sweating. No history of hirsutism. RENAL: No history of chronic kidney disease. No hematuria, pyuria, or dysuria. No recurrent urinary tract infections. METABOLIC: No history of gout or hyperlipidemia. MUSCULOSKELETAL: There is no history of arthritis but the patient has fallen down and sustained a fracture due to the fall. She is for left hip surgical repair tomorrow. There is no history of collagen vascular disease. CENTRAL NERVOUS SYSTEM: No history of TIA or CVA. No history of headaches, migraines, or seizures. Note that the patient has some slow mentation and answers questions vaguely. No focal weaknesses. No sleep apnea. History of gait imbalance present. PSYCHIATRIC: The patient does not appear to be anxious. She is slightly withdrawn. She is not agitated. There are no suicidal ideation. There is no homicidal ideation. HEMATOLOGICAL: No history of bleeding diathesis or clotting disorders, although as per the daughter she had raw areas of the skin with the skin peeling off with Coumadin and Xarelto and some other new anticoagulation agents taken orally. VASCULAR: No history of calf or buttock claudication. History of bilateral DVT present. No history of PE. PHYSICAL EXAMINATION: GENERAL: On examination the patient is well-built and well-nourished but looks slightly older than her stated age. She is well-groomed. VITAL SIGNS: She is afebrile with a temperature of 97.7 degrees Fahrenheit, pulse is 68 beats per minute, blood pressure 134/51, her respirations are 14 per minute, O2 saturations are 98% on 3.5 liters per minute of nasal oxygen by nasal cannula. HEENT: Head is atraumatic, normocephalic. Eyes: Pupils are equal, round and regular, reactive to light and accommodation. Extraocular movements are normal. There is no conjunctival pallor. There is no scleral icterus. Ears: Tympanic membranes are intact, external auditory canals are clear. Nose: There is no deviation of the nasal septum. There is no nasal polyps. There is no inflammation of the nasal mucous membranes of the mouth. Mucous membranes of the mouth are moist. Tongue is moist. There is no bleeding from the gums. Throat: There is no redness of the oropharynx. There are no exudates. NECK: Supple. There is no JVD. There is no lymphadenopathy. There is no goiter. Carotids are equal. There is no bruit. Trachea is central. LUNGS: Clear to auscultation and percussion. There is no chest wall tenderness. There are no rhonchi, rales, or wheezing on auscultation. HEART: S1, S2 is heard. There is no S3 gallop. There is no S4 gallop. There is a systolic murmur in the left sternal border and the apex without any radiation ? flow murmur. There is no rub. ABDOMEN: Soft, nontender. There is no hepatosplenomegaly. Bowel sounds are well heard. EXTREMITIES: Femorals are diminished. There are no femoral bruits. Leg pulses are diminished. There is no definite acute cellulitis or DVT at present. There is no pedal edema. There is no calf tenderness. CENTRAL NERVOUS SYSTEM: The patient is conscious, seems to be oriented x2 without any focal deficits. PSYCHIATRIC: The patient does not appear to be agitated or depressed but the patient seems to be slightly withdrawn. DIAGNOSTIC STUDIES: The patient's chest x-ray has been read as mild interstitial markings. Differential diagnosis includes pulmonary, atypical pneumonitis, and chronic interstitial lung disease. The patient had a cervical spine CT which showed indeterminant 3.6 cm mass with calcification of the upper mediastinum, possible associated with the thyroid. Recommend thyroid ultrasound contrast CT of the chest. Mild interstitial markings. Differential diagnosis include 1) pulmonary edema, atypical pneumonitis, and chronic interstitial lung disease. 2) no acute defect of the cervical spine. The patient's head CT shows no hemorrhage or infarct, no mass, mass effect, or midline shift, mild cerebral volume loss, mild white matter and microangiopathic pattern, 2 cm right maxillary expansion cyst/lymphocele, brain and extra-axial structures appear very intact. Impression is that there are no acute findings. The patient's EKG shows sinus rhythm with left bundle branch block pattern. This seems to be chronic. The patient's echocardiogram shows left ventricle is of normal size, there is no LVH, LV ejection fraction is greater than 65%. There is LV diastolic dysfunction. There is trace MR and trace TR. The right ventricular systolic pressure is mildly elevated at 33-38. There is no aortic valve stenosis or aortic regurgitation. There is no pericardial effusion. IMPRESSION: 1. Fracture of the left hip, for surgical repair of the same. 2. Hypertension. 3. History of DVT bilaterally with contraindication to anticoagulation due to side effects. 4. Hyperthyroidism. 5. X-ray changes most likely chronic. 6. Left bundle branch block pattern, chronic. 7. Prior history of congestive heart failure. 8. Preoperative cardiac risk assessment. 9. Systolic murmur, most likely flow in character, most likely (flow murmur). Note that the patient will be an acceptable risk for this procedure under spinal anesthesia. Postoperatively would continue to monitor the patient on telemetry and get serial EKGs and enzymes, and also watch the patient closely for development of congestive heart failure. Will follow with you. TIME SPENT: Note the patient was seen at 8:30 a.m. this morning. A total of 55 minutes spent on this patient and more than 50% of the time spent on direct patient care. Also discussed with the patient's daughter on the telephone. Note medical decision making is of moderate to high complexity. Her medications have been reviewed. We will follow with you. Discussed this with the hospitalist taking care of the patient. We will discuss with the orthopedist. We will follow with you. DICTATING PHYSICIAN: JERSON BURNETT M.D. [id number] [facility]#: [id number] 2005 ID: [id number] JOB#: [id number] ACCT: [id number] cc:JERSON BURNETT M.D. >
--- NOTE | 2018-03-18 22:45 | Progress Note ---
Provider Note Provider Note: The patient is an 87 year old female with an unclear history but thought to have congestive heart failure, hypertension, hyperthyroidism, diabetes osteoarthritis, gait instability and bilateral DVT who was admitted 5:25 am by the Manager Sales Training for left proximal femur fracture, LBBB, respiratory depression, and fall. Overnight events, notes, H&P, labs and orders were reviewed. Agree with the plan of care as initiated by Dr. Herr. The patient's family was briefly met and have no further questions or concerns today. 1) Fracture of the proximal left femur: Orthopedics has been consulted; anticipate taking the patient to the OR tomorrow (03/19/18) for ORIF once cleared by cardiology. Cardiology has been consulted for cardiac clearance. Have advanced to clear liquid diet today; NPO after midnight. Narcotic pain medications as needed for discomfort. Low dose IV phenergan as needed for nausea/vomiting. Nursing is encouraged to use extreme caution with both medications as the patient has expreienced respiratory depression 2/2 fentanyl administered in the ED and required supplemental oxygen and BiPAP support. 2) LBBB: Patient denies chest pain. Serial troponins are negative. Echocardiogram is reassuring with LVEF>65%, mild to moderate diastolic dysfunction, and mild pulmonary hypertension. Cardiology has been consulted; primary plan per cardiology's recommendations. 3) Coagulopathy: Family reported possible allergy to multiple anticoagulants. Heparin induced platelet antibodies lab evaluation is pending. 4) Respiratory depression: Secondary to narcotic pain medications; supported with supplemental oxygen and BiPAP. Tolerating current medication regiment well. 5) Fall: Mechanical fall at home. PT/OT evaluation per orthopedic's recommendations. Fall precautions instituted.
[2018-03-19] MEDS: IPRATROPIUM/ALBUTEROL 0.5-2.5 MG/3 ML AMPUL NEB SCH ×3 (00:36→16:36)
[2018-03-19] MEDS: MORPHINE SULFATE 10 MG/ML INJ IV PRN ×6 (02:41→21:02)
[2018-03-19 05:00] LABS: ABSOLUTE MONOCYTES (AUTO) 0.8 10^3/uL (0.1-1.4); ABSOLUTE NEUT (AUTO) 7.8 10^3/uL (1.7-8.2); BASOPHILS % (AUTO) 0.4 % (0-2); EOSINOPHILS % (AUTO) 0.5 % (0-6); HEMATOCRIT 25.8 % (36.0-47.0); LYMPHOCYTES % (AUTO) 9.9 % (13-45); MEAN CORPUSCULAR HEMOGLOBIN 29.2 pg (27.0-33.4); MEAN CORPUSCULAR HGB CONC 35.1 g/dL (32.0-36.0); MEAN CORPUSCULAR VOLUME 83 fl (80-97); MONOCYTES % (AUTO) 8.4 % (3-13); PLATELET COUNT 246 10^3/uL (150-450); RED CELL DISTRIBUTION WIDTH 13.9 % (11.5-14.0); SEGMENTED NEUTROPHILS % (AUTO) 80.8 % (42-78); TOTAL CELLS COUNTED % (AUTO) 100 %; WHITE BLOOD COUNT 9.6 10^3/uL (4.0-10.5)
[2018-03-19 05:33] LABS: ANION GAP 9 (5-19); BLOOD UREA NITROGEN 30 mg/dL (7-20); CARBON DIOXIDE 30 mmol/L (22-30); CHLORIDE 100 mmol/L (98-107); GLUCOSE 132 mg/dL (75-110); SODIUM 139.1 mmol/L (137-145)
[2018-03-19] MEDS ORDERED: FENTANYL CITRATE INJ/PF 100 MCG/2 ML AMPUL ONE ×2 (07:55→09:35)
[2018-03-19] MEDS ORDERED: BUPIVACAINE HCL/DEX-WATER/PF 15 MG/2 ML AMPULE ONE (07:56)
[2018-03-19] MEDS ORDERED: EPHEDRINE SULFATE INJ 50 MG/1 ML AMPULE ONE (07:56)
[2018-03-19] MEDS ORDERED: MIDAZOLAM 2 MG/2 ML INJ ONE (07:56)
[2018-03-19] MEDS ORDERED: PROPOFOL INJ 200 MG/20 ML VIAL IV ONE (07:56)
[2018-03-19] MEDS ORDERED: CEFAZOLIN INJ 1 GM VIAL ONE (08:05)
--- NOTE | 2018-03-19 09:07 | Operative Report ---
Operative Report DATE OF SURGERY: 03/19/18 PREOPERATIVE DIAGNOSIS: Left intratrochanteric femur fracture OPERATION: Open reduction internal fixation left intratrochanteric femur fracture SURGEON: LIA ODOM ANESTHESIA: Spinal ESTIMATED BLOOD LOSS: 100 PROCEDURE: With the patient supine on the fracture table the left lower extremities prepped and draped in sterile fashion. Preparation is made for a Jan gamma nail internal fixation. The fracture is reduced under fluoroscopic guidance. The pin is placed percutaneously down through the greater trochanter into the proximal femoral medullary canal. A combined reamers to fashion a cortical opening. The reamer and the pin are removed. The ball-tipped guide rods placed down the length of the femur. Femoral length measures 340 mm. Subsequently a [place] gamma 3 nail 11 mm x 340 mm x 125 is advanced over the ball-tipped guide tera for an appropriate proximal interlock height. Subsequently a 90 mm 10.5 locking screws placed proximally is locked from above. Freehand a 52.5 mm distal locking screw was placed under fluoroscopic guidance. The wounds are irrigated closed using interrupted Vicryl followed by neeraj. Sterile dressings are applied and the patient's return to the PACU in satisfactory condition.
[2018-03-19] MEDS ORDERED: ONDANSETRON HCL INJ/PF 4 MG/2 ML SDV IV PRN (09:14)
[2018-03-19] MEDS ORDERED: FENTANYL CITRATE INJ/PF 100 MCG/2 ML AMPUL IV PRN ×2 (09:14)
[2018-03-19] MEDS ORDERED: MORPHINE SULFATE 10 MG/ML INJ ONE (09:15)
[2018-03-19] MEDS: FENTANYL CITRATE INJ/PF 100 MCG/2 ML AMPUL IV PRN ×2 (09:30→09:45)
--- NOTE | 2018-03-19 10:04 | EKG REPORT ---
SEVERITY:- NORMAL ECG - SINUS RHYTHM : Confirmed by: Alysia Osorio 19-Mar-2018 10:02:25
--- NOTE | 2018-03-19 10:06 | RADIOLOGY REPORT (SQ) ---
EXAM DESCRIPTION: NO CHG FLUORO; HIP LEFT AP/LATERAL COMPLETED DATE/TIME: 03/19/2018 9:58 am REASON FOR STUDY: ORIF LT HIP WITH INTRAMEDULLARY NAILING COMPARISON: 03/18/2018. FLUOROSCOPY TIME: 1.1 minutes Greater than 10 images saved to PACS. TECHNIQUE: Intra-operative images acquired during surgical procedure to evaluate progress. NUMBER OF IMAGES: As above. LIMITATIONS: None. FINDINGS: Images of the hip (reportedly the left but not labeled as such) reveal open reduction inte rnal fixation of fracture. Please correlate with operative note. IMPRESSION: IMAGE(S) OBTAINED DURING PROCEDURE. COMMENT: Quality ID 145: Final reports for procedures using fluoroscopy that document radiation exp osure indices, or exposure time and number of fluorographic images (if radiation exposure indices are not available) Please consult full operative report of the attending physician for description of the procedure. TECHNICAL DOCUMENTATION: JOB ID: [id number] [employer]- All Rights Reserved Reading location - IP/workstation name: [email or web address]
--- NOTE | 2018-03-19 10:06 | RADIOLOGY REPORT (SQ) ---
EXAM DESCRIPTION: NO CHG FLUORO; HIP LEFT AP/LATERAL COMPLETED DATE/TIME: 03/19/2018 9:58 am REASON FOR STUDY: ORIF LT HIP WITH INTRAMEDULLARY NAILING COMPARISON: 03/18/2018. FLUOROSCOPY TIME: 1.1 minutes Greater than 10 images saved to PACS. TECHNIQUE: Intra-operative images acquired during surgical procedure to evaluate progress. NUMBER OF IMAGES: As above. LIMITATIONS: None. FINDINGS: Images of the hip (reportedly the left but not labeled as such) reveal open reduction inte rnal fixation of fracture. Please correlate with operative note. IMPRESSION: IMAGE(S) OBTAINED DURING PROCEDURE. COMMENT: Quality ID 145: Final reports for procedures using fluoroscopy that document radiation exp osure indices, or exposure time and number of fluorographic images (if radiation exposure indices are not available) Please consult full operative report of the attending physician for description of the procedure. TECHNICAL DOCUMENTATION: JOB ID: [id number] [employer]- All Rights Reserved Reading location - IP/workstation name: [email or web address]
[2018-03-19] MEDS: DOCUSATE SODIUM 100 MG CAPSULE PO SCH ×2 (11:13→17:30)
[2018-03-19 12:25] LABS: CREATINE KINASE MB 6.68 ng/mL (<4.55); TROPONIN I 0.012 ng/mL
[2018-03-19] MEDS: KETOROLAC TROMETHAMINE INJ/PF 30 MG/1 ML SDV IV PRN (12:46)
[2018-03-19] MEDS: HEPARIN SOD (PORCINE) 5,000 UNIT/ML 1 ML SYRINGE SUBCUT SCH ×2 (13:15→21:13)
--- NOTE | 2018-03-19 18:40 | PDOC PROGRESS REPORT ---
Subjective Subjective:: The patient is an 87-year-old female with a limited past medical history secondary to poor historian but known to have CHF, history of DVT, hypertension , hyperthyroidism who was admitted on 03/18/18 for left-sided comminuted occipital femoral fracture due to mechanical fall at home. The patient is seen on morning rounds with her family present after returned to her room from ORIF of the left hip by Dr. Godwin. The patient is awake and alert; slightly confused related to recent events, but per family appropriate and near her baseline. She reports that she is in slight discomfort but has already has nurses for pain medication. Overall, she states that she is feeling much better than yesterday. She denies dizziness, headache, chest pain , palpitations, dyspnea, orthopnea, abdominal pain. She does have a slight nonproductive cough that is chronic. They have no questions or concerns at this time. Reason For Visit: HIP FRACTURE, CHF, PRERENAL AZO Physical Exam Vital Signs: Temp Pulse Resp BP Pulse Ox 98.7 F 94 16 139/51 H 99 03/19/18 15:29 03/19/18 16:36 03/19/18 16:36 03/19/18 15:29 03/19/18 16:36 Intake & Output 03/18/18 03/19/18 03/20/18 06:59 06:59 06:59 Intake Total 1910 598 Output Total 1680 770 Balance 230 -172 Weight 65 kg General appearance: PRESENT: no acute distress, cooperative, well-developed, well-nourished Head exam: PRESENT: atraumatic, normocephalic Eye exam: PRESENT: conjunctiva pink, EOMI, PERRLA. ABSENT: scleral icterus Ear exam: PRESENT: normal external ear exam Mouth exam: PRESENT: moist, tongue midline Neck exam: ABSENT: carotid bruit, JVD, lymphadenopathy, thyromegaly Respiratory exam: PRESENT: clear to auscultation gila, symmetrical, unlabored. ABSENT: rales, rhonchi, wheezes Cardiovascular exam: PRESENT: RRR, +S1, +S2. ABSENT: diastolic murmur, rubs, systolic murmur Pulses: PRESENT: normal dorsalis pedis pul Vascular exam: PRESENT: normal capillary refill GI/Abdominal exam: PRESENT: normal bowel sounds, soft. ABSENT: distended, guarding, mass, organolmegaly, rebound, tenderness Rectal exam: PRESENT: deferred Extremities exam: PRESENT: full ROM - LLE 2/2 pain, tenderness - LLE. ABSENT: calf tenderness, clubbing, pedal edema Neurological exam: PRESENT: alert, awake, oriented to person, oriented to time, oriented to situation, CN II-XII grossly intact, other - Pleasantly confused; near baseline per family. ABSENT: oriented to place, motor sensory deficit Psychiatric exam: PRESENT: appropriate affect, normal mood. ABSENT: homicidal ideation, suicidal ideation Skin exam: PRESENT: dry, warm, other - Surgical OpSites to left lateral leg; slight amount of bloody drainage noted. No surrounding ecchymosis, erythema, or edema noted.. ABSENT: cyanosis, rash Results Laboratory Results: 03/19/18 04:40 03/19/18 04:40 03/19/18 03/19/18 04:40 04:40 WBC 9.6 RBC 3.10 L Hgb 9.0 L Hct 25.8 L MCV 83 MCH 29.2 MCHC 35.1 RDW 13.9 Plt Count 246 Seg Neutrophils % 80.8 H Lymphocytes % 9.9 L Monocytes % 8.4 Eosinophils % 0.5 Basophils % 0.4 Absolute Neutrophils 7.8 Absolute Lymphocytes 1.0 Absolute Monocytes 0.8 Absolute Eosinophils 0.0 Absolute Basophils 0.0 Sodium 139.1 Potassium 4.0 Chloride 100 Carbon Dioxide 30 Anion Gap 9 BUN 30 H Creatinine 0.85 Est GFR ( Amer) > 60 Est GFR (Non-Af Amer) > 60 Glucose 132 H Calcium 9.0 Magnesium 1.9 03/18/18 03/18/18 03/18/18 11:11 11:11 17:20 Creatine Kinase 98 96 CK-MB (CK-2) 1.90 Troponin I < 0.012 03/18/18 03/19/18 03/19/18 17:20 11:19 11:19 Creatine Kinase 383 H CK-MB (CK-2) 2.08 6.68 H Troponin I < 0.012 0.012 Impressions: Chest X-Ray 03/18/18 00:00 IMPRESSION: Mild interstitial markings. Differential diagnosis includes pulmonary edema, atypical pneumonitis, and chronic interstitial lung disease. Please also see abnormal concurrent CT of the cervical spine. Head CT 06/22/18 03:05 IMPRESSION: No acute findings. Fluoroscopy 03/19/18 00:00 IMPRESSION: IMAGE(S) OBTAINED DURING PROCEDURE. Hip X-Ray 03/19/18 00:00 IMPRESSION: IMAGE(S) OBTAINED DURING PROCEDURE. Assessment & Plan - Diagnosis (1) Fracture of proximal end of left femur Qualifiers: Encounter type: initial encounter Fracture type: closed Qualified Code(s) : S72.002A - Fracture of unspecified part of neck of left femur, initial encounter for closed fracture Is this a current diagnosis for this admission?: Yes Plan: Secondary to mechanical fall at home now s/p ORIF by Dr. Godwin. Orthopedics is consulted; appreciate their management. Weightbearing, PT/OT per orthopedics recommendations. Tylenol and IV Toradol or morphine as needed for pain. Discharge planning has been consulted; patient will likely require acute rehabilitation at time of discharge. (2) Fall Qualifiers: Encounter type: initial encounter Qualified Code(s): W19.XXXA - Unspecified fall, initial encounter Is this a current diagnosis for this admission?: Yes Plan: Mechanical fall at home resulting in a left femur fracture. Plan as above. (3) Left bundle branch block Is this a current diagnosis for this admission?: Yes Plan: Echocardiogram revealed LVEF greater than 65%, mild diastolic dysfunction, trace mitral and tricuspid regurgitation, and mild pulmonary hypertension. ProBNP 303 Troponins negative x4 Cardiology was consulted and provided preoperative clearance. Blood pressures are acceptable, minimal heart rate elevation is likely due to pain. We will defer medication management to cardiology's expertise. (4) Respiratory depression Is this a current diagnosis for this admission?: Yes Plan: Resolved. Secondary to narcotic pain medication administration. Patient was supported with supplemental oxygen and BiPAP. (5) Prediabetes Is this a current diagnosis for this admission?: Yes Plan: Hemoglobin A1c 6.9%. In patient of her age with a similar life expectancy, and an A1c goal of less than 8.0% would be acceptable. We will continue to monitor Accu-Cheks before meals and at bedtime and provide Humalog for sliding scale coverage. At time of discharge, it would be appropriate is talk with the patient's family members about the option of decreasing or discontinuing her antidiabetic medication. - Time Time Spent with patient: 15-24 minutes Medications reviewed and adjusted accordingly: Yes Anticipated discharge: Acute Rehab
[2018-03-19] MEDS ORDERED: METOPROLOL SUCCINATE 25 MG TAB.SR.24H PO ONE (19:45)
[2018-03-19 19:46] LABS: CREATINE KINASE MB 6.13 ng/mL (<4.55); TROPONIN I 0.019 ng/mL
--- NOTE | 2018-03-19 21:10 | PROGRESS NOTE E ---
Progress Note NAME: DAVID FOWLER : 1930 AGE: 87Y DATE: 03/19/2018 ROOM: 329 SUBJECTIVE: The patient had left hip surgery and she is doing well. She denies any chest pain or discomfort. There is no PND or orthopnea. There is no shortness of breath. There are no TIA or CVA symptoms. There are no arrhythmias seen on the monitor. The patient remains in sinus rhythm. There are no TIA or CVA symptoms. The patient's pain control is good. OBJECTIVE: GENERAL: On examination, the patient is well-built and well-nourished, but looks older than stated age. She is well-groomed. VITAL SIGNS: She is afebrile, with a temperature of 97.8 degrees Fahrenheit, pulse of 93 beats per minute. Blood pressure is 139/64, respirations are 20 per minute. O2 sats are 100% on 3.5 liters nasal cannula. HEENT: Head is atraumatic, normocephalic. Eyes: Pupils are equal, round and regular, reactive to light and accommodation. Extraocular movements are normal. There is no conjunctival pallor. There is no scleral icterus. ENT is negative. NECK: Supple. There is no JVD. Carotids are equal. There is no bruit. There is no lymphadenopathy. Trachea is central. LUNGS: Clear to auscultation and percussion. There is no chest wall tenderness. There are no rhonchi, cummings or wheezing. CARDIAC: S1, S2 are heard. There is no S3 gallop. There is no S4 gallop. There is a systolic murmur at the left sternal border, at the apex, without any radiation. This is a flow murmur, as per record. ABDOMEN: Soft, nontender. There is no hepatosplenomegaly. Bowel sounds are well-heard. EXTREMITIES: Femorals are diminished. There are no femoral bruits. Leg pulses are diminished. Left hip: There is the surgical dressing, which is dry. There is no definite cellulitis or DVT. There is no cyanosis or clubbing. There is no pedal edema. There is no calf tenderness. NEURO: The patient is conscious, awake, alert, oriented x3, without any focal deficits. PSYCHIATRIC: The patient does not appear to be agitated or depressed. She is not withdrawn today. Her judgment and insight seem to be intact. LABORATORY DATA: The patient's white count is 9600, hemoglobin is 9, hematocrit is 25.8 and platelet count is 256,000. The patient's troponin I done this morning is 0.12. Her CPK is elevated at 383. CPK-MB is 6.68. Her sodium is 139.1, potassium 4.0, chloride 100, CO2 is 30. The patient's BUN is 30, creatinine is 0.85. GFR is greater than 60. Glucose is 132. Her calcium is 9.0. Magnesium is 1.9. The patient's hemoglobin A1c done on the was slightly elevated at 6.9. IMPRESSION: 1. FRACTURE OF THE LEFT HIP, STATUS POST SURGERY, STABLE. 2. HYPERTENSION. 3. HISTORY OF BILATERAL DVT WITH CONTRAINDICATION TO ANTICOAGULATION. 4. HYPERPARATHYROIDISM. Clinically, the patient does not have any features of hyperparathyroidism. 5. CHEST X-RAY CHANGES, MOST LIKELY CHRONIC. No acute problems. 6. LEFT BUNDLE BRANCH BLOCK PATTERN, CHRONIC. 7. PRIOR HISTORY OF CONGESTIVE HEART FAILURE. At present, no evidence of congestive heart failure. 8. FLOW MURMUR. RECOMMENDATIONS: Will restart the patient's Toprol and also the patient's lisinopril. Will continue watching the patient to make sure she does not develop a DVT. The patient will be given mechanical procedures to prevent DVT formation. Will recheck the patient's EKG in the morning and recheck the patient's troponin I in the morning. Note, the patient's medications have been reviewed and new medications added by me. Note, 40 minutes spent on the patient, with more than 50% of the time spent on direct patient care. Medical decision-making is moderate to high complexity, in view of the need to start her blood pressure medicines postop. Discussed with the patient and the patient's son-in-law, who is at the bedside. The patient, and earlier the daughter by telephone conversation from yesterday, want to follow up with me as his english lecturer. I have given them my phone number. Will follow with you. Thank you. DICTATING PHYSICIAN: JERSON BURNETT M.D. [id number] PHY#: [id number] ID: [id number] JOB#: [id number] ACCT: [id number] cc: >
[2018-03-19] MEDS: LISINOPRIL 5 MG TABLET PO SCH (21:14)
[2018-03-19] MEDS: INSULIN LISPRO 100 UNIT/ML 3 ML VIAL SUBCUT PRN (22:27)
[2018-03-20] MEDS: IPRATROPIUM/ALBUTEROL 0.5-2.5 MG/3 ML AMPUL NEB SCH ×4 (00:02→22:43)
[2018-03-20] MEDS: MORPHINE SULFATE 10 MG/ML INJ IV PRN ×4 (00:42→21:08)
[2018-03-20] MEDS: CEFAZOLIN 2 GM/D5W RTU 2 GM/50 ML RTUPB IV PRN (00:45)
[2018-03-20 03:31] LABS: ABSOLUTE BASOPHILS # (AUTO) 0.1 10^3/uL (0.0-0.2); ABSOLUTE EOSINOPHILS # (AUTO) 0.1 10^3/uL (0.0-0.6); ABSOLUTE LYMPHOCYTES (AUTO) 1.1 10^3/uL (0.5-4.7); ABSOLUTE MONOCYTES (AUTO) 0.7 10^3/uL (0.1-1.4); ABSOLUTE NEUT (AUTO) 6.1 10^3/uL (1.7-8.2); BASOPHILS % (AUTO) 0.7 % (0-2); EOSINOPHILS % (AUTO) 1.5 % (0-6); HEMATOCRIT 22.2 % (36.0-47.0); LYMPHOCYTES % (AUTO) 13.5 % (13-45); MEAN CORPUSCULAR HEMOGLOBIN 28.3 pg (27.0-33.4); MEAN CORPUSCULAR HGB CONC 33.7 g/dL (32.0-36.0); MEAN CORPUSCULAR VOLUME 84 fl (80-97); MONOCYTES % (AUTO) 8.3 % (3-13); PLATELET COUNT 204 10^3/uL (150-450); RED BLOOD COUNT 2.65 10^6/uL (3.72-5.28); RED CELL DISTRIBUTION WIDTH 13.6 % (11.5-14.0); TOTAL CELLS COUNTED % (AUTO) 100 %; WHITE BLOOD COUNT 8.1 10^3/uL (4.0-10.5)
[2018-03-20 03:38] LABS: HEMOGLOBIN 7.5 g/dL (12.0-15.5)
[2018-03-20 04:34] LABS: ANION GAP 8 (5-19); BLOOD UREA NITROGEN 22 mg/dL (7-20); CALCIUM 8.7 mg/dL (8.4-10.2); CARBON DIOXIDE 32 mmol/L (22-30); CHLORIDE 100 mmol/L (98-107); GLUCOSE 110 mg/dL (75-110); POTASSIUM 4.6 mmol/L (3.6-5.0); SODIUM 140.1 mmol/L (137-145)
[2018-03-20 04:46] LABS: CREATINE KINASE MB 2.96 ng/mL (<4.55); TROPONIN I 0.049 ng/mL
[2018-03-20] MEDS ORDERED: NORMAL SALINE 250 ML IV PRN (06:38)
[2018-03-20] MEDS: HEPARIN SOD (PORCINE) 5,000 UNIT/ML 1 ML SYRINGE SUBCUT SCH ×3 (06:59→21:08)
--- NOTE | 2018-03-20 07:15 | PDOC PROGRESS REPORT ---
Subjective Progress Note for:: 03/20/18 Reason For Visit: HIP FRACTURE, CHF, PRERENAL AZO Patient is unaware that she had surgery yesterday. Physical Exam Vital Signs: Temp Pulse Resp BP Pulse Ox 37.4 C 92 18 138/55 H 99 03/20/18 03:17 03/20/18 03:17 03/20/18 03:17 03/20/18 03:17 03/20/18 03:17 Intake & Output 03/19/18 03/20/18 03/21/18 06:59 06:59 06:59 Intake Total 1910 1783 Output Total 1680 1920 Balance 230 -137 Weight 65 kg 70.1 kg General appearance: PRESENT: no acute distress, mild distress Head exam: PRESENT: normocephalic Respiratory exam: PRESENT: unlabored Cardiovascular exam: PRESENT: RRR Pulses: PRESENT: +1 pedal pulses bilateral Vascular exam: PRESENT: normal capillary refill GI/Abdominal exam: PRESENT: soft Rectal exam: PRESENT: deferred Extremities exam: PRESENT: other - Left lower extremity dressings are clean dry and intact. Leg lengths are equal. Brisk capillary refill. Results Laboratory Results: 03/20/18 03:15 03/20/18 03:15 03/20/18 03/20/18 03:15 03:15 WBC 8.1 RBC 2.65 L Hgb 7.5 L Hct 22.2 L MCV 84 MCH 28.3 MCHC 33.7 RDW 13.6 Plt Count 204 Seg Neutrophils % 76.0 Lymphocytes % 13.5 Monocytes % 8.3 Eosinophils % 1.5 Basophils % 0.7 Absolute Neutrophils 6.1 Absolute Lymphocytes 1.1 Absolute Monocytes 0.7 Absolute Eosinophils 0.1 Absolute Basophils 0.1 Sodium 140.1 Potassium 4.6 Chloride 100 Carbon Dioxide 32 H Anion Gap 8 BUN 22 H Creatinine 0.87 Est GFR ( Amer) > 60 Est GFR (Non-Af Amer) > 60 Glucose 110 Calcium 8.7 03/18/18 03/18/18 03/18/18 11:11 11:11 17:20 Creatine Kinase 98 96 CK-MB (CK-2) 1.90 Troponin I < 0.012 03/18/18 03/19/18 03/19/18 17:20 11:19 11:19 Creatine Kinase 383 H CK-MB (CK-2) 2.08 6.68 H Troponin I < 0.012 0.012 03/19/18 03/19/18 03/20/18 19:01 19:01 03:15 Creatine Kinase 546 H 462 H CK-MB (CK-2) 6.13 H Troponin I 0.019 03/20/18 03:15 Creatine Kinase CK-MB (CK-2) 2.96 Troponin I 0.049 Impressions: Chest X-Ray 03/18/18 00:00 IMPRESSION: Mild interstitial markings. Differential diagnosis includes pulmonary edema, atypical pneumonitis, and chronic interstitial lung disease. Please also see abnormal concurrent CT of the cervical spine. Head CT 03/18/18 03:05 IMPRESSION: No acute findings. Fluoroscopy 03/19/18 00:00 IMPRESSION: IMAGE(S) OBTAINED DURING PROCEDURE. Hip X-Ray 03/19/18 00:00 IMPRESSION: IMAGE(S) OBTAINED DURING PROCEDURE. Status: Imported from PACS Assessment & Plan - Diagnosis (1) Acute blood loss as cause of postoperative anemia Is this a current diagnosis for this admission?: Yes Plan: Patient's hematocrit has dropped to 22%. I taken the liberty of ordering 2 units of packed red blood cells with repeat labs in the morning. (2) Fracture of proximal end of left femur Qualifiers: Encounter type: initial encounter Fracture type: closed Qualified Code(s) : S72.002A - Fracture of unspecified part of neck of left femur, initial encounter for closed fracture Is this a current diagnosis for this admission?: Yes Plan: Patient can be mobilized with physical therapy and weightbearing as tolerated basis anticipate the need for detention facility placement
--- NOTE | 2018-03-20 10:08 | EKG REPORT ---
SEVERITY:- ABNORMAL ECG - SINUS RHYTHM LEFT BUNDLE BRANCH BLOCK : Confirmed by: Alysia Osorio 20-Mar-2018 10:07:30
[2018-03-20] MEDS: METOPROLOL SUCCINATE 25 MG TAB.SR.24H PO SCH (10:29)
[2018-03-20] MEDS: DOCUSATE SODIUM 100 MG CAPSULE PO SCH ×2 (10:29→17:10)
[2018-03-20] MEDS: INSULIN LISPRO 100 UNIT/ML 3 ML VIAL SUBCUT PRN (11:54)
[2018-03-20] MEDS: LISINOPRIL 5 MG TABLET PO SCH ×2 (12:27→21:08)
[2018-03-20] MEDS ORDERED: FUROSEMIDE INJ/PF 20 MG/2 ML SDV IV ONE (14:15)
--- NOTE | 2018-03-20 16:27 | PDOC PROGRESS REPORT ---
Subjective Progress Note for:: 03/20/18 Subjective:: The patient is an 87-year-old female with a limited past medical history secondary to poor historian but known to have CHF, history of DVT, hypertension , hyperthyroidism who was admitted on 03/18/18 for left-sided comminuted occipital femoral fracture due to mechanical fall at home. The patient is seen on morning rounds; she is now POD #1 s/p ORIF Lt hip. The patient is awake and alert; she remains slightly confused related to recent events. She reports that her pain is better controlled today. She denies dizziness, headache, chest pain, palpitations, dyspnea, orthopnea, abdominal pain. She does have a slight nonproductive cough that is chronic. They have no questions or concerns at this time. Reason For Visit: HIP FRACTURE, CHF, PRERENAL AZO Physical Exam Vital Signs: Temp Pulse Resp BP Pulse Ox 98.3 F 73 14 106/56 L 100 03/20/18 16:00 03/20/18 16:01 03/20/18 16:01 03/20/18 16:00 03/20/18 16:01 Intake & Output 03/19/18 03/20/18 03/21/18 06:59 06:59 06:59 Intake Total 1910 4598 950 Output Total 1680 2320 175 Balance 230 2278 775 Weight 65 kg 70.1 kg General appearance: PRESENT: no acute distress, cooperative, well-developed, well-nourished Head exam: PRESENT: atraumatic, normocephalic Eye exam: PRESENT: conjunctiva pink, EOMI, PERRLA. ABSENT: scleral icterus Ear exam: PRESENT: normal external ear exam Mouth exam: PRESENT: moist, tongue midline Teeth exam: PRESENT: poor dentation Neck exam: ABSENT: carotid bruit, JVD, lymphadenopathy, thyromegaly Respiratory exam: PRESENT: clear to auscultation gila. ABSENT: rales, rhonchi, wheezes Cardiovascular exam: PRESENT: RRR. ABSENT: diastolic murmur, rubs, systolic murmur Pulses: PRESENT: normal dorsalis pedis pul Vascular exam: PRESENT: normal capillary refill GI/Abdominal exam: PRESENT: normal bowel sounds, soft. ABSENT: distended, guarding, mass, organolmegaly, rebound, tenderness Rectal exam: PRESENT: deferred Extremities exam: PRESENT: tenderness. ABSENT: calf tenderness, clubbing, full ROM - LLE 2/2 pain, pedal edema Neurological exam: PRESENT: alert, awake, oriented to person, oriented to place , oriented to time, oriented to situation, CN II-XII grossly intact. ABSENT: motor sensory deficit Psychiatric exam: PRESENT: appropriate affect, normal mood. ABSENT: homicidal ideation, suicidal ideation Skin exam: PRESENT: dry, warm, other - Upsets to left lower leg; all drainage. No surrounding ecchymosis, erythema or edema.. ABSENT: cyanosis, intact, rash Results Laboratory Results: 03/20/18 03:15 03/20/18 03:15 03/20/18 03/20/18 03/20/18 03:15 03:15 07:42 WBC 8.1 RBC 2.65 L Hgb 7.5 L Hct 22.2 L MCV 84 MCH 28.3 MCHC 33.7 RDW 13.6 Plt Count 204 Seg Neutrophils % 76.0 Lymphocytes % 13.5 Monocytes % 8.3 Eosinophils % 1.5 Basophils % 0.7 Absolute Neutrophils 6.1 Absolute Lymphocytes 1.1 Absolute Monocytes 0.7 Absolute Eosinophils 0.1 Absolute Basophils 0.1 Sodium 140.1 Potassium 4.6 Chloride 100 Carbon Dioxide 32 H Anion Gap 8 BUN 22 H Creatinine 0.87 Est GFR ( Amer) > 60 Est GFR (Non-Af Amer) > 60 Glucose 110 Calcium 8.7 Blood Type O POSITIVE Antibody Screen NEGATIVE 03/18/18 03/18/18 03/18/18 11:11 11:11 17:20 Creatine Kinase 98 96 CK-MB (CK-2) 1.90 Troponin I < 0.012 03/18/18 03/19/18 03/19/18 17:20 11:19 11:19 Creatine Kinase 383 H CK-MB (CK-2) 2.08 6.68 H Troponin I < 0.012 0.012 03/19/18 03/19/18 03/20/18 19:01 19:01 03:15 Creatine Kinase 546 H 462 H CK-MB (CK-2) 6.13 H Troponin I 0.019 03/20/18 03/20/18 03:15 10:17 Creatine Kinase CK-MB (CK-2) 2.96 Troponin I 0.049 0.023 Impressions: Chest X-Ray 03/18/18 00:00 IMPRESSION: Mild interstitial markings. Differential diagnosis includes pulmonary edema, atypical pneumonitis, and chronic interstitial lung disease. Please also see abnormal concurrent CT of the cervical spine. Head CT 03/18/18 03:05 IMPRESSION: No acute findings. Fluoroscopy 03/19/18 00:00 IMPRESSION: IMAGE(S) OBTAINED DURING PROCEDURE. Hip X-Ray 03/19/18 00:00 IMPRESSION: IMAGE(S) OBTAINED DURING PROCEDURE. Assessment & Plan - Diagnosis (1) Fracture of proximal end of left femur Qualifiers: Encounter type: initial encounter Fracture type: closed Qualified Code(s) : S72.002A - Fracture of unspecified part of neck of left femur, initial encounter for closed fracture Is this a current diagnosis for this admission?: Yes Plan: Secondary to mechanical fall at home now s/p ORIF by Dr. Godwin. Orthopedics is consulted; appreciate their management. Weightbearing, PT/OT per orthopedics recommendations. Tylenol and IV Toradol or morphine as needed for pain. Discharge planning has been consulted; patient will likely require acute rehabilitation at time of discharge. (2) Fall Qualifiers: Encounter type: initial encounter Qualified Code(s): W19.XXXA - Unspecified fall, initial encounter Is this a current diagnosis for this admission?: Yes Plan: Mechanical fall at home resulting in a left femur fracture. Plan as above. (3) Left bundle branch block Is this a current diagnosis for this admission?: Yes Plan: Echocardiogram revealed LVEF greater than 65%, mild diastolic dysfunction, trace mitral and tricuspid regurgitation, and mild pulmonary hypertension. ProBNP 303 Troponins negative x7 Cardiology was consulted and provided preoperative clearance. Cardiology is continuing to trend troponins and EKG postoperatively; slight bump in troponin noted today and no trending down. Patient rdenies chest pain. We will defer medication management to cardiology's expertise. (4) Respiratory depression Is this a current diagnosis for this admission?: Yes Plan: Resolved. Secondary to narcotic pain medication administration. Continue supporting with supplemental oxygen and BiPAP to maintain oxygen saturations greater than 90%. Incentive spirometry to bedside. Patient is afebrile and leukocytosis has resolved; no indication for antibiotics. (5) Prediabetes Is this a current diagnosis for this admission?: Yes Plan: Hemoglobin A1c 6.9%. In patient of her age with a similar life expectancy, and an A1c goal of less than 8.0% would be acceptable. We will continue to monitor Accu-Cheks before meals and at bedtime and provide Humalog for sliding scale coverage. At time of discharge, it would be appropriate is talk with the patient's family members about the option of decreasing or discontinuing her antidiabetic medication. (6) Acute blood loss as cause of postoperative anemia Is this a current diagnosis for this admission?: Yes Plan: Hemoglobin on admission noted to be 10.3; decrease to 7.5 postoperatively. Patient is scheduled to receive 2 units packed red blood cells today. Patient is slightly hypotensive today; expect that this will resolved with blood transfusion. We will also support with gentle maintenance IV fluids. Lasix 10 mg IV x1 between transfusions. Monitor closely for fluid overload. - Time Time Spent with patient: 15-24 minutes Medications reviewed and adjusted accordingly: Yes Anticipated discharge: Acute Rehab - Inpatient Certification Medical Necessity: Need Close Monitoring Due to Risk of Patient Decompensation, Need For IV Fluids
[2018-03-20] MEDS: NORMAL SALINE 1000 ML 1,000 ML IV PRN (17:10)
[2018-03-20 19:07] LABS: ABSOLUTE BASOPHILS # (AUTO) 0.1 10^3/uL (0.0-0.2); ABSOLUTE EOSINOPHILS # (AUTO) 0.2 10^3/uL (0.0-0.6); ABSOLUTE LYMPHOCYTES (AUTO) 0.9 10^3/uL (0.5-4.7); ABSOLUTE MONOCYTES (AUTO) 0.6 10^3/uL (0.1-1.4); ABSOLUTE NEUT (AUTO) 6.5 10^3/uL (1.7-8.2); BASOPHILS % (AUTO) 0.7 % (0-2); EOSINOPHILS % (AUTO) 2.6 % (0-6); HEMATOCRIT 27.3 % (36.0-47.0); HEMOGLOBIN 9.5 g/dL (12.0-15.5); LYMPHOCYTES % (AUTO) 10.3 % (13-45); MEAN CORPUSCULAR HEMOGLOBIN 29.3 pg (27.0-33.4); MEAN CORPUSCULAR HGB CONC 34.8 g/dL (32.0-36.0); MEAN CORPUSCULAR VOLUME 84 fl (80-97); MONOCYTES % (AUTO) 7.3 % (3-13); PLATELET COUNT 178 10^3/uL (150-450); RED BLOOD COUNT 3.23 10^6/uL (3.72-5.28); RED CELL DISTRIBUTION WIDTH 13.9 % (11.5-14.0); SEGMENTED NEUTROPHILS % (AUTO) 79.1 % (42-78); TOTAL CELLS COUNTED % (AUTO) 100 %; WHITE BLOOD COUNT 8.2 10^3/uL (4.0-10.5)
--- NOTE | 2018-03-20 21:45 | PROGRESS NOTE E ---
Progress Note NAME: DAVID FOWLER : 1930 AGE: 87Y DATE: 03/20/2018 ROOM: 329 SUBJECTIVE: The patient denies any chest pain or discomfort. There is no arrhythmia seen on the monitor. The patient denies PND, orthopnea. There are no TIA or CVA symptoms. There is no leg edema. There is no arrhythmia seen on the monitor. The patient has no shortness of breath or chest pain or discomfort. OBJECTIVE: GENERAL: On examination the patient is well-built, well-nourished, but looks older than her stated age. She is well-groomed. VITAL SIGNS: She is afebrile with a temperature of 98.9 degrees Fahrenheit, pulse is 92 beats per minute, blood pressure is 117/45, respirations are 16 per minute, O2 saturations are 97% on 3.5 liters nasal cannula. HEENT: Head is atraumatic, normocephalic. Eyes: Pupils are equal, round and regular, reactive to light and accommodation. Extraocular movements are normal. There is mild conjunctival pallor. There is no scleral icterus. ENT is negative. NECK: Supple. There is no JVD. There is no lymphadenopathy. Carotids are equal. There is no bruit. Trachea is central. LUNGS: Clear to auscultation and percussion. There is no chest wall tenderness. There are no rhonchi, rales, or wheezing. HEART: S1, S2 is heard. There is no S3 gallop. There is no S4 gallop. There is a systolic murmur in the left sternal border and the apex without radiation. There is no rub. ABDOMEN: Soft, nontender. There is no hepatosplenomegaly. Bowel sounds are well heard. EXTREMITIES: Femorals are diminished. There are no femoral bruits. Leg pulses are diminished. Surgical dressing on the left hip is dry. There is no cellulitis or DVT. There is no cyanosis or clubbing. There is no pedal edema. There is no calf tenderness. CENTRAL NERVOUS SYSTEM: The patient is conscious, awake, alert and oriented x3 with no focal deficits. PSYCHIATRIC: The patient does not appear to be agitated or depressed. Judgement and insight today seem to be intact. DIAGNOSTICS: The patient's EKG interpreted by me shows sinus rhythm with a left bundle branch block pattern. The patient's troponin I is negative at 0.049 and 0.023. Her sodium is 140.1, potassium 4.6, chloride is 100, CO2 is 32. The patient's BUN is 22, creatinine 0.87, GFR is greater than 60, and glucose is 100, calcium is 8.7. Her white count is 8100, hemoglobin has dropped to 7.5, hematocrit is 22.2, platelet count is 204,000. IMPRESSION: 1. ANEMIA, MOST LIKELY RELATED TO HIP FRACTURE. The patient will be receiving 2 units of packed red blood cells. 2. STATUS POST SURGERY FOR FRACTURE OF LEFT HIP, STABLE. 3. HYPERTENSION. BLOOD PRESSURE WELL-CONTROLLED. 4. HISTORY OF BILATERAL DVT WITH CONTRAINDICATION TO ANTICOAGULATION. No recurrence of DVT. 5. HYPERTHYROIDISM. The patient does not have any features of hyperthyroidism. 6. CHEST X-RAY CHANGES MOST LIKELY CHRONIC. No acute problem. 7. LEFT BUNDLE BRANCH BLOCK PATTERN, CHRONIC. 8. PRIOR HISTORY OF CONGESTIVE HEART FAILURE. At present no evidence of CHF. 9. FLOW MURMUR. RECOMMENDATIONS: Agree with transfusing the patient. We will recheck the patient's EKG and troponin I in the a.m. Medications have been reviewed. Continue current medications. TIME SPENT: Note 40 minutes spent on the patient with more 50% of the time spent on direct patient care. CODE STATUS: The patient is a DNR, her daughter is the surrogate healthcare decision maker. I spoke to the patient's granddaughter with the patient's permission, the granddaughter being at the patient's bedside. We will follow with you. Discussed with the attending physician on the case and other caregiving providers on the case. DICTATING PHYSICIAN: JERSON BURNETT M.D. [id number] PHY#: [id number] ID: [id number] JOB#: [id number] ACCT: [id number] cc: >
[2018-03-21] MEDS: MORPHINE SULFATE 10 MG/ML INJ IV PRN ×4 (00:15→23:19)
[2018-03-21] MEDS: CEFAZOLIN 2 GM/D5W RTU 2 GM/50 ML RTUPB IV PRN (06:27)
[2018-03-21] MEDS: HEPARIN SOD (PORCINE) 5,000 UNIT/ML 1 ML SYRINGE SUBCUT SCH ×3 (06:27→21:37)
--- NOTE | 2018-03-21 06:36 | PDOC PROGRESS REPORT ---
Subjective Progress Note for:: 03/21/18 Reason For Visit: HIP FRACTURE, CHF, PRERENAL AZO The patient is now postop day 2 from an open reduction internal fixation of a left hip fracture. Patient is now more alert and appropriate and relates that she has had surgery ready. Progress with physical therapy has been limited. Physical Exam Vital Signs: Temp Pulse Resp BP Pulse Ox 36.8 C 83 20 130/51 H 98 03/21/18 04:15 03/21/18 04:15 03/21/18 04:15 03/21/18 04:15 03/21/18 04:15 Intake & Output 03/19/18 03/20/18 03/21/18 06:59 06:59 06:59 Intake Total 1910 4598 1360 Output Total 1680 2320 1000 Balance 230 2278 360 Weight 65 kg 70.1 kg General appearance: PRESENT: no acute distress Head exam: PRESENT: normocephalic Respiratory exam: PRESENT: unlabored Cardiovascular exam: PRESENT: RRR Pulses: PRESENT: +1 pedal pulses bilateral Vascular exam: PRESENT: normal capillary refill GI/Abdominal exam: PRESENT: soft Rectal exam: PRESENT: deferred Extremities exam: PRESENT: other - Left lower extremity dressings clean dry and intact Results Laboratory Results: 03/20/18 03/20/18 07:42 19:00 WBC 8.2 RBC 3.23 L Hgb 9.5 L Hct 27.3 L MCV 84 MCH 29.3 MCHC 34.8 RDW 13.9 Plt Count 178 Seg Neutrophils % 79.1 H Lymphocytes % 10.3 L Monocytes % 7.3 Eosinophils % 2.6 Basophils % 0.7 Absolute Neutrophils 6.5 Absolute Lymphocytes 0.9 Absolute Monocytes 0.6 Absolute Eosinophils 0.2 Absolute Basophils 0.1 Blood Type O POSITIVE Antibody Screen NEGATIVE 03/18/18 03/18/18 03/18/18 11:11 11:11 17:20 Creatine Kinase 98 96 CK-MB (CK-2) 1.90 Troponin I < 0.012 03/18/18 03/19/18 03/19/18 17:20 11:19 11:19 Creatine Kinase 383 H CK-MB (CK-2) 2.08 6.68 H Troponin I < 0.012 0.012 03/19/18 03/19/18 03/20/18 19:01 19:01 03:15 Creatine Kinase 546 H 462 H CK-MB (CK-2) 6.13 H Troponin I 0.019 03/20/18 03/20/18 03:15 10:17 Creatine Kinase CK-MB (CK-2) 2.96 Troponin I 0.049 0.023 Impressions: Chest X-Ray 03/18/18 00:00 IMPRESSION: Mild interstitial markings. Differential diagnosis includes pulmonary edema, atypical pneumonitis, and chronic interstitial lung disease. Please also see abnormal concurrent CT of the cervical spine. Head CT 03/18/18 03:05 IMPRESSION: No acute findings. Fluoroscopy 03/19/18 00:00 IMPRESSION: IMAGE(S) OBTAINED DURING PROCEDURE. Hip X-Ray 03/19/18 00:00 IMPRESSION: IMAGE(S) OBTAINED DURING PROCEDURE. Assessment & Plan - Diagnosis (1) Acute blood loss as cause of postoperative anemia Is this a current diagnosis for this admission?: Yes Plan: Patient's hematocrit has increased to 27% after 2 units of packed red blood cells (2) Fracture of proximal end of left femur Qualifiers: Encounter type: initial encounter Fracture type: closed Qualified Code(s) : S72.002A - Fracture of unspecified part of neck of left femur, initial encounter for closed fracture Is this a current diagnosis for this admission?: Yes Plan: Limited progress with physical therapy
[2018-03-21 06:44] LABS: HEMATOCRIT 29.1 % (36.0-47.0); HEMOGLOBIN 10.2 g/dL (12.0-15.5); MEAN CORPUSCULAR HEMOGLOBIN 29.8 pg (27.0-33.4); MEAN CORPUSCULAR HGB CONC 35.2 g/dL (32.0-36.0); MEAN CORPUSCULAR VOLUME 85 fl (80-97); PLATELET COUNT 184 10^3/uL (150-450); RED BLOOD COUNT 3.44 10^6/uL (3.72-5.28); RED CELL DISTRIBUTION WIDTH 14.1 % (11.5-14.0); WHITE BLOOD COUNT 9.1 10^3/uL (4.0-10.5)
[2018-03-21 07:00] LABS: ANION GAP 9 (5-19); BLOOD UREA NITROGEN 17 mg/dL (7-20); CALCIUM 8.4 mg/dL (8.4-10.2); CARBON DIOXIDE 28 mmol/L (22-30); CHLORIDE 99 mmol/L (98-107); GLUCOSE 124 mg/dL (75-110); POTASSIUM 4.7 mmol/L (3.6-5.0); SODIUM 136.1 mmol/L (137-145)
[2018-03-21] MEDS: IPRATROPIUM/ALBUTEROL 0.5-2.5 MG/3 ML AMPUL NEB SCH ×3 (08:05→23:39)
[2018-03-21] MEDS: METOPROLOL SUCCINATE 25 MG TAB.SR.24H PO SCH (09:34)
[2018-03-21] MEDS: DOCUSATE SODIUM 100 MG CAPSULE PO SCH ×2 (09:34→18:01)
[2018-03-21] MEDS: LISINOPRIL 5 MG TABLET PO SCH ×2 (09:35→21:37)
--- NOTE | 2018-03-21 12:36 | EKG REPORT ---
SEVERITY:- ABNORMAL ECG - SINUS RHYTHM LEFT BUNDLE BRANCH BLOCK : Confirmed by: Kassy Maloney MD 21-Mar-2018 12:35:22
--- NOTE | 2018-03-21 17:36 | PDOC PROGRESS REPORT ---
Subjective Progress Note for:: 03/21/18 Subjective:: 87-year-old female with history of CHF, history of DVT, HTN, hyperthyroidism who was admitted on March 18, 2018 for left-sided comminuted occipital femoral fracture due to mechanical fall at home. The patient is seen this morning on rounds, she is now POD#2 s/p ORIF L hip. The patient is awake and alert, oriented 3. She reports that her pain is well controlled, with the exception of during physical therapy. The patient was updated about her discharge plan, with impending transfer to acute rehab facility. The patient states understanding. Reason For Visit: HIP FRACTURE, CHF, PRERENAL AZO Physical Exam Vital Signs: Temp Pulse Resp BP Pulse Ox 98.6 F 80 16 120/42 L 97 03/21/18 11:55 03/21/18 16:13 03/21/18 16:13 03/21/18 11:55 03/21/18 16:13 Intake & Output 03/20/18 03/21/18 03/22/18 06:59 06:59 06:59 Intake Total 4598 1530 200 Output Total 2320 1800 900 Balance 2278 -270 -700 Weight 70.1 kg 69.1 kg General appearance: PRESENT: no acute distress, well-developed Eye exam: PRESENT: conjunctiva pink, PERRLA Mouth exam: PRESENT: moist Neck exam: PRESENT: full ROM Respiratory exam: PRESENT: clear to auscultation gila, symmetrical, unlabored Cardiovascular exam: PRESENT: +S1, +S2, other - LBBB (old) Pulses: PRESENT: normal radial pulses, normal dorsalis pedis pul GI/Abdominal exam: PRESENT: normal bowel sounds, soft. ABSENT: tenderness Rectal exam: PRESENT: deferred Extremities exam: ABSENT: full ROM Musculoskeletal exam: PRESENT: ambulatory - with assistance, full ROM Neurological exam: PRESENT: alert, awake, oriented to person, oriented to place , oriented to time, oriented to situation Psychiatric exam: PRESENT: appropriate affect Skin exam: PRESENT: dry, intact Results Laboratory Results: 03/21/18 05:57 03/21/18 05:57 03/20/18 03/21/18 03/21/18 19:00 05:57 05:57 WBC 8.2 9.1 RBC 3.23 L 3.44 L Hgb 9.5 L 10.2 L Hct 27.3 L 29.1 L MCV 84 85 MCH 29.3 29.8 MCHC 34.8 35.2 RDW 13.9 14.1 H Plt Count 178 184 Seg Neutrophils % 79.1 H Lymphocytes % 10.3 L Monocytes % 7.3 Eosinophils % 2.6 Basophils % 0.7 Absolute Neutrophils 6.5 Absolute Lymphocytes 0.9 Absolute Monocytes 0.6 Absolute Eosinophils 0.2 Absolute Basophils 0.1 Sodium 136.1 L Potassium 4.7 Chloride 99 Carbon Dioxide 28 Anion Gap 9 BUN 17 Creatinine 0.63 Est GFR ( Amer) > 60 Est GFR (Non-Af Amer) > 60 Glucose 124 H Calcium 8.4 03/18/18 03/18/18 03/18/18 11:11 11:11 17:20 Creatine Kinase 98 96 CK-MB (CK-2) 1.90 Troponin I < 0.012 03/18/18 03/19/18 03/19/18 17:20 11:19 11:19 Creatine Kinase 383 H CK-MB (CK-2) 2.08 6.68 H Troponin I < 0.012 0.012 03/19/18 03/19/18 03/20/18 19:01 19:01 03:15 Creatine Kinase 546 H 462 H CK-MB (CK-2) 6.13 H Troponin I 0.019 03/20/18 03/20/18 03/21/18 03:15 10:17 05:57 Creatine Kinase CK-MB (CK-2) 2.96 Troponin I 0.049 0.023 0.013 Impressions: Chest X-Ray 03/18/18 00:00 IMPRESSION: Mild interstitial markings. Differential diagnosis includes pulmonary edema, atypical pneumonitis, and chronic interstitial lung disease. Please also see abnormal concurrent CT of the cervical spine. Head CT 03/18/18 03:05 IMPRESSION: No acute findings. Fluoroscopy 03/19/18 00:00 IMPRESSION: IMAGE(S) OBTAINED DURING PROCEDURE. Hip X-Ray 03/19/18 00:00 IMPRESSION: IMAGE(S) OBTAINED DURING PROCEDURE. Status: Imported from PACS Assessment & Plan - Diagnosis (1) Fracture of proximal end of left femur Qualifiers: Encounter type: initial encounter Fracture type: closed Qualified Code(s) : S72.002A - Fracture of unspecified part of neck of left femur, initial encounter for closed fracture Is this a current diagnosis for this admission?: Yes Plan: Secondary to mechanical fall at home now s/p ORIF by Dr. Godwin. Orthopedics is consulted; appreciate their management. Weightbearing, PT/OT per orthopedics recommendations. Tylenol and IV Toradol or morphine as needed for pain. Added PO toradol for better pain control Discharge planning has been consulted; patient will likely require acute rehabilitation at time of discharge. (2) Fall Qualifiers: Encounter type: initial encounter Qualified Code(s): W19.XXXA - Unspecified fall, initial encounter Is this a current diagnosis for this admission?: Yes Plan: Mechanical fall at home resulting in a left femur fracture. Plan as above. (3) Left bundle branch block Is this a current diagnosis for this admission?: Yes Plan: Echocardiogram revealed LVEF greater than 65%, mild diastolic dysfunction, trace mitral and tricuspid regurgitation, and mild pulmonary hypertension. ProBNP 303 Troponins negative x7, no longer trending Cardiology was consulted and provided preoperative clearance. Cardiology is continuing to trend troponins and EKG postoperatively; No longer trending at this time. Patient denies chest pain. We will defer medication management to cardiology's expertise. (4) Respiratory depression Is this a current diagnosis for this admission?: Yes Plan: Resolved. Secondary to narcotic pain medication administration. Continue supporting with supplemental oxygen and BiPAP to maintain oxygen saturations greater than 90%. Incentive spirometry to bedside. Patient is afebrile and leukocytosis has resolved; no indication for antibiotics. (5) Prediabetes Is this a current diagnosis for this admission?: Yes Plan: Hemoglobin A1c 6.9%. In patient of her age with a similar life expectancy, and an A1c goal of less than 8.0% would be acceptable. We will continue to monitor Accu-Cheks before meals and at bedtime and provide Humalog for sliding scale coverage. Will talk with the patient's family members about the option of decreasing or discontinuing her antidiabetic medication. (6) Acute blood loss as cause of postoperative anemia Is this a current diagnosis for this admission?: Yes Plan: Hemoglobin on admission noted to be 10.3; decrease to 7.5 postoperatively. Patient received 2 units packed red blood cells yesterday Patient is slightly hypotensive today; resolved post-transfusion. Monitor closely for fluid overload. - Time Time Spent with patient: 15-24 minutes Medications reviewed and adjusted accordingly: Yes Anticipated discharge: Acute Rehab - Inpatient Certification Based on my medical assessment, after consideration of the patient's comorbidities, presenting symptoms, or acuity I expect that the services needed warrant INPATIENT care.: Yes I certify that my determination is in accordance with my understanding of Medicare's requirements for reasonable and necessary INPATIENT services [42 CFR 412.3e].: Yes Medical Necessity: Risk of Complication if Not Cared For in Hospital - Plan Summary Plan Summary: Ultimately, the patient will be discharged to acute rehab
[2018-03-21] MEDS: TRAMADOL HCL 50 MG TABLET PO PRN (21:37)
[2018-03-21] MEDS: MAG HYDROX/AL HYDROX/SIMETH SUSP 30 ML UDCUP PO PRN (22:01)
--- NOTE | 2018-03-22 04:00 | PROGRESS NOTE E ---
Progress Note NAME: DAVID FOWLER : 1930 AGE: 87Y DATE: 03/21/2018 ROOM: 329 SUBJECTIVE: The patient denies any chest pain or discomfort. There is no arrhythmia seen on the monitor. Pain control is good. There are no TIA or CVA symptoms. The patient has no shortness of breath. There is no PND or orthopnea. There is no recurrence of DVT. OBJECTIVE: GENERAL: On examination the patient is well-built, well-nourished, but looks older than her stated age. She is well groomed. VITAL SIGNS: She is afebrile with a temperature of 98.6 degrees Fahrenheit, pulse is 84 beats per minute, blood pressure is 120/42, respirations are 18 per minute, O2 sats are 100% on 2 liters nasal cannula. HEENT: Head is atraumatic, normocephalic. Eyes: Pupils are equal, round and regular, reactive to light and accommodation. Extraocular movements are normal. There is mild conjunctival pallor. There is no scleral icterus. ENT is negative. NECK: Supple. There is no JVD. There is no lymphadenopathy. Carotids are equal. There is no bruit. Trachea is central. LUNGS: Clear to auscultation and percussion. There is no chest wall tenderness. There are no rhonchi, rales, or wheezing. HEART: S1, S2 is heard. There is no S3 gallop. There is no S4 gallop. There is a systolic murmur in the left sternal border at the apex without radiation. There is no rub. ABDOMEN: Soft, nontender. There is no hepatosplenomegaly. Bowel sounds are well heard. EXTREMITIES: Femorals are diminished. There are no femoral bruits. Leg pulses are diminished. Surgical dressing on the left hip is dry. There is no cellulitis or DVT. There is no cyanosis or clubbing. There is no pedal edema. There is no calf tenderness. CENTRAL NERVOUS SYSTEM: The patient is conscious, awake, alert and oriented x3 with no focal deficits. PSYCHIATRIC: The patient does not appear to be agitated or depressed. The patient's judgement and insight seem to be intact. DIAGNOSTICS: The patient's EKG shows sinus rhythm with left bundle branch block pattern, which is unchanged. White count 9100, hemoglobin stable at 10.2, hematocrit 29.1, and platelet count 184,000. Sodium 136.1, potassium 4.7, chloride 99, CO2 28, BUN 17, creatinine 0.63, GFR greater than 60, glucose 124, calcium 8.4. Troponin-I negative at 0.013. IMPRESSION: 1. ANEMIA. Related to the patient's hip fracture, at present corrected after blood transfusion. Hemoglobin is stable at 10.2. 2. STATUS POST SURGERY FOR FRACTURE OF LEFT HIP. Stable. 3. HYPERTENSION. Blood pressure well controlled. 4. HISTORY OF BILATERAL DEEP VENOUS THROMBOSIS. Contraindication to anticoagulation. No recurrence of DVT. 5. HISTORY OF HYPERTHYROIDISM. The patient does not have medication for this and does not have any features of hyperthyroidism. 6. CHEST X-RAY CHANGES. Most likely chronic. The patient is asymptomatic. 7. LEFT BUNDLE BRANCH BLOCK PATTERN. Chronic. 8. PRIOR HISTORY OF CONGESTIVE HEART FAILURE. At present no evidence of congestive heart failure. 9. FLOW MURMUR. 10. NO EVIDENCE OF ACUTE CORONARY SYNDROME OR [id number] MYOCARDIAL INFARCTION. The patient is stable. RECOMMENDATIONS: The patient's medications have been reviewed. Discussed with the patient in detail, the patient's cardiac status is stable. We will sign-off the case at present. Medical decision-making is of moderate complexity. Discussed findings of the EKG and the troponin-I with the patient. Discussed with the hospitalist. We will sign off the case. The patient will follow up with me in the office as desired by her and her family. Note, 40 minutes spent on this patient with more than 50% of time spent on direct patient care. Thanking you. DICTATING PHYSICIAN: JERSON BURNETT M.D. [id number] PHY#: [id number] ID: [id number] JOB#: [id number] ACCT: [id number] cc: >
[2018-03-22] MEDS: HEPARIN SOD (PORCINE) 5,000 UNIT/ML 1 ML SYRINGE SUBCUT SCH ×3 (05:19→22:15)
[2018-03-22] MEDS: MAG HYDROX/AL HYDROX/SIMETH SUSP 30 ML UDCUP PO PRN (05:19)
--- NOTE | 2018-03-22 06:46 | PDOC PROGRESS REPORT ---
Subjective Progress Note for:: 03/22/18 Reason For Visit: HIP FRACTURE, CHF, PRERENAL AZO 87-year-old white female postop day 3 status post open reduction internal fixation of a left proximal femur fracture. Patient mentally clear this morning , appropriate. Physical Exam Vital Signs: Temp Pulse Resp BP Pulse Ox 36.7 C 83 18 135/69 H 100 03/22/18 03:56 03/22/18 03:56 03/22/18 03:56 03/22/18 03:56 03/22/18 03:56 Intake & Output 03/20/18 03/21/18 03/22/18 06:59 06:59 06:59 Intake Total 4598 1530 1275 Output Total 2320 1800 1575 Balance 2278 -270 -300 Weight 70.1 kg 69.1 kg 69.1 kg General appearance: PRESENT: no acute distress, mild distress Head exam: PRESENT: normocephalic Respiratory exam: PRESENT: unlabored Cardiovascular exam: PRESENT: RRR Pulses: PRESENT: +1 pedal pulses bilateral Vascular exam: PRESENT: normal capillary refill GI/Abdominal exam: PRESENT: soft Rectal exam: PRESENT: deferred Extremities exam: PRESENT: other - Left lower extremity dressings clean dry and intact. Distal neurovascular examination is intact. Leg lengths are equal. Skin exam: PRESENT: dry, intact, warm. ABSENT: cyanosis, rash Results Laboratory Results: 03/21/18 05:57 03/21/18 05:57 03/21/18 03/21/18 05:57 05:57 WBC 9.1 RBC 3.44 L Hgb 10.2 L Hct 29.1 L MCV 85 MCH 29.8 MCHC 35.2 RDW 14.1 H Plt Count 184 Sodium 136.1 L Potassium 4.7 Chloride 99 Carbon Dioxide 28 Anion Gap 9 BUN 17 Creatinine 0.63 Est GFR ( Amer) > 60 Est GFR (Non-Af Amer) > 60 Glucose 124 H Calcium 8.4 03/18/18 03/18/18 03/18/18 11:11 11:11 17:20 Creatine Kinase 98 96 CK-MB (CK-2) 1.90 Troponin I < 0.012 03/18/18 03/19/18 03/19/18 17:20 11:19 11:19 Creatine Kinase 383 H CK-MB (CK-2) 2.08 6.68 H Troponin I < 0.012 0.012 03/19/18 03/19/18 03/20/18 19:01 19:01 03:15 Creatine Kinase 546 H 462 H CK-MB (CK-2) 6.13 H Troponin I 0.019 03/20/18 03/20/18 03/21/18 03:15 10:17 05:57 Creatine Kinase CK-MB (CK-2) 2.96 Troponin I 0.049 0.023 0.013 Impressions: Chest X-Ray 03/18/18 00:00 IMPRESSION: Mild interstitial markings. Differential diagnosis includes pulmonary edema, atypical pneumonitis, and chronic interstitial lung disease. Please also see abnormal concurrent CT of the cervical spine. Head CT 03/18/18 03:05 IMPRESSION: No acute findings. Fluoroscopy 03/19/18 00:00 IMPRESSION: IMAGE(S) OBTAINED DURING PROCEDURE. Hip X-Ray 03/19/18 00:00 IMPRESSION: IMAGE(S) OBTAINED DURING PROCEDURE. Status: Imported from PACS Assessment & Plan - Diagnosis (1) Acute blood loss as cause of postoperative anemia Is this a current diagnosis for this admission?: Yes Plan: Hematocrit steady at 29% (2) Fracture of proximal end of left femur Qualifiers: Encounter type: initial encounter Fracture type: closed Qualified Code(s) : S72.002A - Fracture of unspecified part of neck of left femur, initial encounter for closed fracture Is this a current diagnosis for this admission?: Yes Plan: Limited progress mobilizing with physical therapy. Anticipate the need for [facility] facility placement.
[2018-03-22] MEDS: IPRATROPIUM/ALBUTEROL 0.5-2.5 MG/3 ML AMPUL NEB SCH ×3 (07:59→23:57)
[2018-03-22] MEDS: MORPHINE SULFATE 10 MG/ML INJ IV PRN (08:15)
[2018-03-22 08:37] LABS: HEMATOCRIT 30.1 % (36.0-47.0); HEMOGLOBIN 10.3 g/dL (12.0-15.5); MEAN CORPUSCULAR HEMOGLOBIN 28.9 pg (27.0-33.4); MEAN CORPUSCULAR HGB CONC 34.1 g/dL (32.0-36.0); MEAN CORPUSCULAR VOLUME 85 fl (80-97); PLATELET COUNT 228 10^3/uL (150-450); RED BLOOD COUNT 3.55 10^6/uL (3.72-5.28); WHITE BLOOD COUNT 8.8 10^3/uL (4.0-10.5)
[2018-03-22] MEDS: METOPROLOL SUCCINATE 25 MG TAB.SR.24H PO SCH (10:18)
[2018-03-22] MEDS: LISINOPRIL 5 MG TABLET PO SCH ×2 (10:20→22:15)
[2018-03-22] MEDS: DOCUSATE SODIUM 100 MG CAPSULE PO SCH ×2 (10:22→17:15)
[2018-03-22] MEDS: NORMAL SALINE 1000 ML 1,000 ML IV PRN (10:22)
[2018-03-22] MEDS: INSULIN LISPRO 100 UNIT/ML 3 ML VIAL SUBCUT PRN (12:41)
--- NOTE | 2018-03-22 16:26 | PDOC PROGRESS REPORT ---
Subjective Progress Note for:: 03/22/18 Subjective:: 87-year-old female with history of CHF, history of DVT, HTN, hyperthyroidism who was admitted on March 18, 2018 for left-sided comminuted occipital femoral fracture due to mechanical fall at home. The patient is seen this morning on rounds, she is now POD#3 s/p ORIF L hip. The patient is awake and alert, oriented 3. She reports that her pain is well controlled and she is able to tolerate physical therapy. The patient was updated about her discharge plan, with impending transfer to acute rehab facility. The patient states understanding. Patient's Hgb and Hct stable today. Patient remains NORMOtensive. Her ability to participate in PT greatly improved today. Plan to transfer to acute rehab within 24-48 hours. Reason For Visit: HIP FRACTURE, CHF, PRERENAL AZO Physical Exam Vital Signs: Temp Pulse Resp BP Pulse Ox 97.7 F 73 18 125/56 L 97 03/22/18 15:03 03/22/18 15:03 03/22/18 15:03 03/22/18 15:03 03/22/18 15:03 Intake & Output 03/21/18 03/22/18 03/23/18 06:59 06:59 06:59 Intake Total 1530 1275 250 Output Total 1800 1575 600 Balance -270 -300 -350 Weight 69.1 kg 69.1 kg General appearance: PRESENT: no acute distress Eye exam: PRESENT: conjunctiva pink, PERRLA Mouth exam: PRESENT: moist Neck exam: PRESENT: full ROM Respiratory exam: PRESENT: clear to auscultation gila, symmetrical, unlabored Cardiovascular exam: PRESENT: +S1, +S2 Pulses: PRESENT: normal radial pulses, normal dorsalis pedis pul Vascular exam: PRESENT: normal capillary refill GI/Abdominal exam: PRESENT: normal bowel sounds, soft. ABSENT: tenderness Rectal exam: PRESENT: deferred Extremities exam: PRESENT: tenderness - L HIP. ABSENT: full ROM Musculoskeletal exam: PRESENT: ambulatory - with assistance. ABSENT: full ROM Neurological exam: PRESENT: alert, awake, oriented to person, oriented to place , oriented to time. ABSENT: oriented to situation - MILD CONFUSION REGARDING SITUATION. SHE UNDERSTANDS THAT SHE BROKE HER HIP AND IT WAS SURGICALLY REPAIRED , BUT SHE IS UNCLEAR ABOUT HER TIME WITH PT AND WHERE SHE WILL BE GOING POST- DISCHARGE Psychiatric exam: PRESENT: appropriate affect, other Skin exam: PRESENT: dry, intact, normal color Results Laboratory Results: 03/22/18 07:50 03/21/18 05:57 03/22/18 07:50 WBC 8.8 RBC 3.55 L Hgb 10.3 L Hct 30.1 L MCV 85 MCH 28.9 MCHC 34.1 RDW 14.0 Plt Count 228 03/18/18 03/18/18 03/18/18 11:11 11:11 17:20 Creatine Kinase 98 96 CK-MB (CK-2) 1.90 Troponin I < 0.012 03/18/18 03/19/18 03/19/18 17:20 11:19 11:19 Creatine Kinase 383 H CK-MB (CK-2) 2.08 6.68 H Troponin I < 0.012 0.012 03/19/18 03/19/18 03/20/18 19:01 19:01 03:15 Creatine Kinase 546 H 462 H CK-MB (CK-2) 6.13 H Troponin I 0.019 03/20/18 03/20/18 03/21/18 03:15 10:17 05:57 Creatine Kinase CK-MB (CK-2) 2.96 Troponin I 0.049 0.023 0.013 Impressions: Chest X-Ray 03/18/18 00:00 IMPRESSION: Mild interstitial markings. Differential diagnosis includes pulmonary edema, atypical pneumonitis, and chronic interstitial lung disease. Please also see abnormal concurrent CT of the cervical spine. Head CT 03/18/18 03:05 IMPRESSION: No acute findings. Fluoroscopy 03/19/18 00:00 IMPRESSION: IMAGE(S) OBTAINED DURING PROCEDURE. Hip X-Ray 03/19/18 00:00 IMPRESSION: IMAGE(S) OBTAINED DURING PROCEDURE. Status: Imported from PACS Assessment & Plan - Diagnosis (1) Fracture of proximal end of left femur Qualifiers: Encounter type: initial encounter Fracture type: closed Qualified Code(s) : S72.002A - Fracture of unspecified part of neck of left femur, initial encounter for closed fracture Is this a current diagnosis for this admission?: Yes Plan: Secondary to mechanical fall at home now s/p ORIF by Dr. Godwin. Orthopedics is consulted; appreciate their management. Weightbearing, PT/OT per orthopedics recommendations. Tylenol, toradol and IV Toradol or morphine as needed for pain. Discharge planning has been consulted; patient will likely require acute rehabilitation at time of discharge. (2) Fall Qualifiers: Encounter type: initial encounter Qualified Code(s): W19.XXXA - Unspecified fall, initial encounter Is this a current diagnosis for this admission?: Yes Plan: Mechanical fall at home resulting in a left femur fracture. Plan as above. (3) Left bundle branch block Is this a current diagnosis for this admission?: Yes Plan: Echocardiogram revealed LVEF greater than 65%, mild diastolic dysfunction, trace mitral and tricuspid regurgitation, and mild pulmonary hypertension. ProBNP 303 Troponins negative x7, no longer trending Cardiology was consulted and provided preoperative clearance. Cardiology is continuing to trend troponins and EKG postoperatively; No longer trending at this time. Patient denies chest pain. We will defer medication management to cardiology's expertise. (4) Respiratory depression Is this a current diagnosis for this admission?: Yes Plan: Resolved. Secondary to narcotic pain medication administration. Continue supporting with supplemental oxygen and BiPAP to maintain oxygen saturations greater than 90%. Incentive spirometry to bedside. Patient is afebrile and leukocytosis has resolved; no indication for antibiotics. (5) Prediabetes Is this a current diagnosis for this admission?: Yes Plan: Hemoglobin A1c 6.9%. In patient of her age with a similar life expectancy, and an A1c goal of less than 8.0% would be acceptable. We will continue to monitor Accu-Cheks before meals and at bedtime and provide Humalog for sliding scale coverage. Will talk with the patient's family members about the option of decreasing or discontinuing her antidiabetic medication. (6) Acute blood loss as cause of postoperative anemia Is this a current diagnosis for this admission?: Yes Plan: Hemoglobin on admission noted to be 10.3; decrease to 7.5 postoperatively. Patient received 2 units packed red blood cells 03/20 Patient is slightly normotensive today Monitor closely for fluid overload. - Time Time Spent with patient: 15-24 minutes Medications reviewed and adjusted accordingly: Yes Anticipated discharge: Acute Rehab Within: within 24 hours - Inpatient Certification Based on my medical assessment, after consideration of the patient's comorbidities, presenting symptoms, or acuity I expect that the services needed warrant INPATIENT care.: Yes I certify that my determination is in accordance with my understanding of Medicare's requirements for reasonable and necessary INPATIENT services [42 CFR 412.3e].: Yes Medical Necessity: Risk of Complication if Not Cared For in Hospital - Plan Summary Plan Summary: PLAN TO TRANSFER TO ACUTE REHAB WITHIN 24-48 HOURS.
[2018-03-22] MEDS: TRAMADOL HCL 50 MG TABLET PO PRN ×2 (17:17→22:14)
[2018-03-23] MEDS: MORPHINE SULFATE 10 MG/ML INJ IV PRN (01:59)
[2018-03-23] MEDS: HEPARIN SOD (PORCINE) 5,000 UNIT/ML 1 ML SYRINGE SUBCUT SCH ×2 (06:02→14:26)
[2018-03-23] MEDS: IPRATROPIUM/ALBUTEROL 0.5-2.5 MG/3 ML AMPUL NEB SCH ×2 (07:40→15:53)
[2018-03-23] MEDS: DOCUSATE SODIUM 100 MG CAPSULE PO SCH (09:06)
[2018-03-23] MEDS: LISINOPRIL 5 MG TABLET PO SCH (09:07)
[2018-03-23] MEDS: METOPROLOL SUCCINATE 25 MG TAB.SR.24H PO SCH (09:09)
[2018-03-23] MEDS: TRAMADOL HCL 50 MG TABLET PO PRN (09:09)
[2018-03-23] MEDS: NORMAL SALINE 1000 ML 1,000 ML IV PRN (09:15)
--- NOTE | 2018-03-23 13:08 | PDOC TRANSFER SUMMARY ---
General Admission Date/PCP: 03/18/18 05:40 PRANAY CHANDLER MD Resuscitation Status: Full Code - Transfer Diagnosis (1) Fracture of proximal end of left femur Is this a current diagnosis for this admission?: Yes (2) Fall Is this a current diagnosis for this admission?: Yes (3) Left bundle branch block Is this a current diagnosis for this admission?: Yes (4) Respiratory depression Is this a current diagnosis for this admission?: Yes (5) Prediabetes Is this a current diagnosis for this admission?: Yes (6) Acute blood loss as cause of postoperative anemia Is this a current diagnosis for this admission?: Yes - Transfer Medications Home Medications: Amlodipine Besylate [Norvasc 10 mg Tablet] 10 mg PO QAM 03/18/18 Glipizide [Glucotrol 5 mg Tablet] 5 mg PO [id number] 03/18/18 Ubidecarenone/Vit E Acet [Co Q-10 100 mg Softgel] 1 each PO DAILY 03/18/18 Transfer Medications: Current Medications Acetaminophen (Tylenol 325 Mg Tablet) 650 mg PO Q4HP PRN PRN Reason: FOR PAIN OR TEMP Stop: 04/17/18 05:24 Last Admin: 03/20/18 10:29 Dose: 650 mg Al Hydrox/Mg Hydrox/Simethicone (Maalox Plus Susp 30 Udcup) 30 ml PO Q6HP PRN PRN Reason: HEARTBURN Stop: 04/17/18 05:24 Last Admin: 03/22/18 05:19 Dose: 30 ml Albuterol/Ipratropium (Duoneb 3 Ml Ampul) 3 ml NEB RTQ8 YANNICK Stop: 04/17/18 07:59 Last Admin: 03/23/18 07:40 Dose: 3 ml Albuterol/Ipratropium (Duoneb 3 Ml Ampul) 3 ml NEB [id number] PRN PRN Reason: SHORTNESS OF BREATH Stop: 04/17/18 05:24 Dextrose (Dextrose Inj 50% Syringe (25 Gm/50 Ml)) 12.5 gm IV PRN PRN; Protocol PRN Reason: FOR BG 50-69 IN ALERT PATIENT Stop: 04/17/18 05:24 Dextrose (Dextrose Inj 50% Syringe (25 Gm/50 Ml)) 25 gm IV PRN PRN; Protocol PRN Reason: PER PROTOCOL Stop: 04/17/18 05:24 Docusate Sodium (Colace 100 Mg Capsule) 100 mg PO BID [facility] Stop: 04/17/18 09:59 Last Admin: 03/23/18 09:06 Dose: 100 mg Glucagon (Glucagen Inj 1 Mg Vial) 1 mg IM PRN PRN; Protocol PRN Reason: Evaluate for BG < 70 Stop: 04/17/18 05:24 Glucose (Glutose 40% Gel 15 Gm Tube) 15 gm PO PRN PRN; Protocol PRN Reason: FOR BG 50-69 IN ALERT PATIENT Stop: 04/17/18 05:24 Glucose (Glutose 40% Gel 15 Gm Tube) 30 gm PO PRN PRN; Protocol PRN Reason: FOR BG < 50 IN ALERT PATIENT Stop: 04/17/18 05:24 Heparin Sodium (Porcine) (Heparin Inj 5,000 Units/Ml 1 Ml Syringe) 5,000 unit SUBCUT Q8 [facility] Stop: 04/17/18 05:59 Last Admin: 03/23/18 06:02 Dose: 5,000 unit Sodium Chloride (Nacl 0.9% 1000 Ml Iv Soln) 1,000 mls @ 50 mls/hr IV CONTINUOUS PRN PRN Reason: THIS MED IS NOT "PRN" Stop: 04/19/18 16:25 Last Admin: 03/23/18 09:15 Dose: 1,000 ml Insulin Human Lispro (Humalog Insulin 100 Unit/1 Ml 3 Ml Vial) 0 - 12 unit SUBCUT Q6HP PRN; Protocol PRN Reason: PER PROTOCOL Stop: 04/17/18 05:24 Last Admin: 03/22/18 12:41 Dose: 2 unit Lisinopril (Prinivil 5 Mg Tablet) 5 mg PO Q12 [facility] Stop: 04/18/18 21:59 Last Admin: 03/23/18 09:07 Dose: 5 mg Magnesium Hydroxide (Milk Of Magnesia 30 Ml Udcup) 30 ml PO HSP PRN PRN Reason: FOR CONSTIPATION Stop: 04/17/18 05:24 Metoprolol Succinate (Toprol Xl 25 Mg Tab.Sr) 25 mg PO DAILY [facility] Stop: 04/19/18 09:59 Last Admin: 03/23/18 09:09 Dose: 25 mg Morphine Sulfate (Morphine 10 Mg/Ml Inj) 5 mg IV Q2HP PRN PRN Reason: FOR PAIN SCALE 3-5 Stop: 03/25/18 06:21 Last Admin: 03/23/18 01:59 Dose: 5 mg Promethazine HCl (Phenergan Inj 25 Mg/1 Ml Vial) 6.25 mg IV Q8HP PRN PRN Reason: FOR NAUSEA/VOMITING Stop: 04/17/18 09:12 Last Admin: 03/18/18 22:01 Dose: 6.25 mg Tramadol HCl (Ultram 50 Mg Tablet) 50 mg PO Q4HP PRN PRN Reason: FOR PAIN Stop: 03/28/18 17:16 Last Admin: 03/23/18 09:09 Dose: 50 mg - Allergies Allergies/Adverse Reactions: rivaroxaban [From Xarelto] Adverse Reaction (Verified 03/19/18 07:17) warfarin [From Coumadin] Adverse Reaction (Verified 03/19/18 07:17) - Diet/Activity Discharge Diet: As Tolerated Discharge Activity: Activity As Tolerated Hospital Course Hospital Course: 87-year-old female with history of CHF, history of DVT, HTN, hyperthyroidism who was admitted on March 18, 2018 for left-sided comminuted occipital femoral fracture due to mechanical fall at home. Preop echocardiogram revealed LVEF greater than 65%, mild diastolic dysfunction , trace mitral and tricuspid regurgitation, and mild pulmonary hypertension. ProBNP 303. Cardiology was consulted to clear the patient for surgery. ORIF completed by Dr. Godwin 03/19. Hemoglobin on admission noted to be 10.3; decreased to 7.5 postoperatively. Patient received 2 units packed red blood cells 03/20. Hgb and Hct stabilized after transfusion. Patient did not require subsequent transfusions. At the time of transfer, the patient is now POD#4 s/p ORIF by Dr. Godwin. Weight bearing and PT/OT activity per PT/OT recommendations. Hemoglobin A1c 6.9%. In patient of her age with a similar life expectancy, and an A1c goal of less than 8.0% would be acceptable. The patient has not required humalog sliding scale insulin coverage. The patient no longer requires diabetic medication management, attempt to manage with diet control. Physical Exam Vital Signs: Temp Pulse Resp BP Pulse Ox 98.4 F 76 14 145/67 H 96 03/23/18 07:26 03/23/18 07:40 03/23/18 07:40 03/23/18 07:26 03/23/18 07:40 Intake & Output 03/22/18 03/23/18 03/24/18 06:59 06:59 06:59 Intake Total 1275 1683 Output Total 1575 1590 Balance -300 93 Weight 69.1 kg 69.1 kg Results Laboratory Results: 03/22/18 07:50 03/21/18 05:57 03/18/18 03/18/18 03/18/18 11:11 11:11 17:20 Creatine Kinase 98 96 CK-MB (CK-2) 1.90 Troponin I < 0.012 03/18/18 03/19/18 03/19/18 17:20 11:19 11:19 Creatine Kinase 383 H CK-MB (CK-2) 2.08 6.68 H Troponin I < 0.012 0.012 03/19/18 03/19/18 03/20/18 19:01 19:01 03:15 Creatine Kinase 546 H 462 H CK-MB (CK-2) 6.13 H Troponin I 0.019 03/20/18 03/20/18 03/21/18 03:15 10:17 05:57 Creatine Kinase CK-MB (CK-2) 2.96 Troponin I 0.049 0.023 0.013 Impressions: Chest X-Ray 03/18/18 00:00 IMPRESSION: Mild interstitial markings. Differential diagnosis includes pulmonary edema, atypical pneumonitis, and chronic interstitial lung disease. Please also see abnormal concurrent CT of the cervical spine. Head CT 03/18/18 03:05 IMPRESSION: No acute findings. Fluoroscopy 03/19/18 00:00 IMPRESSION: IMAGE(S) OBTAINED DURING PROCEDURE. Hip X-Ray 03/19/18 00:00 IMPRESSION: IMAGE(S) OBTAINED DURING PROCEDURE. Status: Imported from PACS Plan Discharge Plan: DISCHARGE TO ACUTE REHAB. CONTINUE DAILY PT/OT. Time Spent: Less than 30 Minutes
[2018-03-23 16:14] VITALS: BP 147/63
== END 2018-03-23 18:56 | DRG 481 ==
LOC: ER 02:47 → EH 05:40 → 3S 08:06
PROVIDERS: ADMIT Internal Medicine; ATTEND Internal Medicine
PROC: 5A09457 Assistance with Respiratory Ventilation, 24-96 Consecutive Hours, Continuous Positive Airway Pressure (ICD-10-PCS; 2018-03-18)
PROC: 0QS706Z Reposition Left Upper Femur with Intramedullary Internal Fixation Device, Open Approach (ICD-10-PCS; principal; 2018-03-19 08:00)
PROC: 30233N1 Transfusion of Nonautologous Red Blood Cells into Peripheral Vein, Percutaneous Approach (ICD-10-PCS; 2018-03-20)
DX: S72.142A Displaced intertrochanteric fracture of left femur, initial encounter for closed fracture (principal); D62 Acute posthemorrhagic anemia; W06.XXXA Fall from bed, initial encounter; Y92.003 Bedroom of unspecified non-institutional (private) residence as the place of occurrence of the external cause; S00.412A Abrasion of left ear, initial encounter; S09.90XA Unspecified injury of head, initial encounter; I11.0 Hypertensive heart disease with heart failure; I50.9 Heart failure, unspecified; E05.90 Thyrotoxicosis, unspecified without thyrotoxic crisis or storm; R06.03 Acute respiratory distress; R73.03 Prediabetes; M19.90 Unspecified osteoarthritis, unspecified site; Z86.718 Personal history of other venous thrombosis and embolism; Z66 Do not resuscitate; Z88.8 Allergy status to other drugs, medicaments and biological substances; Z82.49 Family history of ischemic heart disease and other diseases of the circulatory system; I44.7 Left bundle-branch block, unspecified; R01.1 Cardiac murmur, unspecified; T40.605A Adverse effect of unspecified narcotics, initial encounter
CPT/HCPCS: 01230; 36415; 36430; 51702; 70450; 71045; 72125; 80048; 80053; 81001; 82550; 82553; 82962; 83036; 83735; 83880; 84484; 85025; 85027; 85610; 85730; 86022; 86850; 86900; 86901; 86920; 93005; 93010; 93306; 94640; 94660; 94799; 96374; 96375; 96376; 99285; C1713; J0690; J1644; J1815; J1885; J1940; J2250; J2270; J2550; J2704; J3010; J3490; J7030; J7120; J7620; P9016; S0119